=== PATIENT | male | born 1940 | race Caucasian/White ===

== ENCOUNTER 2016-04-25 14:12 | Outpatient (CLI) | payer MEDICARE, OTHER | END 2016-04-25 14:13 | disposition home or self-care (01) | DX: I48.0 Paroxysmal atrial fibrillation (principal) ==

== ENCOUNTER 2016-05-01 10:05 | Outpatient (CLI) | payer MEDICARE, OTHER | END 2016-05-01 10:06 | disposition home or self-care (01) | DX: I48.0 Paroxysmal atrial fibrillation (principal) ==

== ENCOUNTER 2016-05-17 13:40 | Outpatient (CLI) | payer MEDICARE, OTHER | END 2016-05-17 13:41 | disposition home or self-care (01) | DX: I48.0 Paroxysmal atrial fibrillation (principal) ==

== ENCOUNTER 2016-05-20 14:23 | Outpatient (CLI) | payer MEDICARE, OTHER | END 2016-05-20 14:24 | disposition home or self-care (01) | DX: I48.0 Paroxysmal atrial fibrillation (principal) ==

== ENCOUNTER 2016-05-27 06:57 | Outpatient (CLI) | payer MEDICARE, OTHER | END 2016-05-27 06:58 | disposition home or self-care (01) | DX: I48.0 Paroxysmal atrial fibrillation (principal) ==

== ENCOUNTER 2016-06-05 10:17 | Outpatient (CLI) | payer MEDICARE, OTHER | END 2016-06-05 10:18 | disposition home or self-care (01) | DX: I48.0 Paroxysmal atrial fibrillation (principal) ==

== ENCOUNTER 2016-06-11 13:01 | Outpatient (CLI) | payer MEDICARE, OTHER | END 2016-06-11 13:02 | disposition home or self-care (01) | DX: I48.0 Paroxysmal atrial fibrillation (principal) ==

== ENCOUNTER 2016-06-14 07:20 | Outpatient (CLI) | payer MEDICARE, OTHER | END 2016-06-14 07:21 | disposition home or self-care (01) | DX: I48.0 Paroxysmal atrial fibrillation (principal) ==

== ENCOUNTER 2016-06-17 12:47 | Outpatient (CLI) | payer MEDICARE, OTHER | END 2016-06-17 12:48 | disposition home or self-care (01) | DX: I48.0 Paroxysmal atrial fibrillation (principal) ==

== ENCOUNTER 2016-06-27 12:30 | Outpatient (CLI) | payer MEDICARE, OTHER | END 2016-06-27 12:31 | disposition home or self-care (01) | DX: I48.0 Paroxysmal atrial fibrillation (principal) ==

== ENCOUNTER 2016-07-04 12:53 | Outpatient (CLI) | payer MEDICARE, OTHER | END 2016-07-04 12:54 | disposition home or self-care (01) | DX: I48.0 Paroxysmal atrial fibrillation (principal) ==

== ENCOUNTER 2016-07-11 11:21 | Outpatient (CLI) | payer MEDICARE, OTHER | END 2016-07-11 11:22 | disposition home or self-care (01) | DX: I48.0 Paroxysmal atrial fibrillation (principal) ==

== ENCOUNTER 2016-07-22 13:29 | Outpatient (CLI) | payer MEDICARE, OTHER | END 2016-07-22 13:30 | disposition home or self-care (01) | DX: I48.0 Paroxysmal atrial fibrillation (principal) ==

== ENCOUNTER 2016-07-29 13:31 | Outpatient (CLI) | payer MEDICARE, OTHER | END 2016-07-29 13:32 | disposition home or self-care (01) | DX: I48.0 Paroxysmal atrial fibrillation (principal) ==

== ENCOUNTER 2016-08-12 11:02 | Outpatient (CLI) | payer MEDICARE, OTHER | END 2016-08-12 11:03 | disposition home or self-care (01) | DX: I48.0 Paroxysmal atrial fibrillation (principal) ==

== ENCOUNTER 2016-08-19 11:11 | Outpatient (CLI) | payer MEDICARE, OTHER | END 2016-08-19 11:12 | disposition home or self-care (01) | DX: I48.0 Paroxysmal atrial fibrillation (principal) ==

== ENCOUNTER 2016-08-26 09:13 | Outpatient (CLI) | payer MEDICARE, OTHER | END 2016-08-26 09:14 | disposition home or self-care (01) | DX: I48.0 Paroxysmal atrial fibrillation (principal) ==

== ENCOUNTER 2016-09-02 10:18 | Outpatient (CLI) | payer MEDICARE, OTHER | END 2016-09-02 10:19 | disposition home or self-care (01) | DX: I48.0 Paroxysmal atrial fibrillation (principal) ==

== ENCOUNTER 2016-09-09 13:11 | Outpatient (CLI) | payer MEDICARE, OTHER | END 2016-09-09 13:12 | disposition home or self-care (01) | DX: I48.0 Paroxysmal atrial fibrillation (principal) ==

== ENCOUNTER 2016-09-18 09:47 | Outpatient (CLI) | payer MEDICARE, OTHER | END 2016-09-18 09:48 | disposition home or self-care (01) | LOC: LAB.F 09:47 | PROVIDERS: ATTEND Internal Medicine | DX: I48.0 Paroxysmal atrial fibrillation (principal) | CPT/HCPCS: 85610 ==

== ENCOUNTER 2016-09-24 10:28 | Outpatient (CLI) | payer MEDICARE, OTHER | END 2016-09-24 10:29 | disposition home or self-care (01) | LOC: LAB.F 10:28 | PROVIDERS: ATTEND Internal Medicine | DX: I48.0 Paroxysmal atrial fibrillation (principal) | CPT/HCPCS: 85610 ==

== ENCOUNTER 2016-09-30 14:00 | Outpatient (CLI) | payer MEDICARE, OTHER | END 2016-09-30 14:01 | disposition home or self-care (01) | LOC: LAB.F 14:00 | PROVIDERS: ATTEND Internal Medicine | DX: I48.0 Paroxysmal atrial fibrillation (principal) | CPT/HCPCS: 85610 ==

== ENCOUNTER 2016-10-08 09:12 | Outpatient (CLI) | payer MEDICARE, OTHER | END 2016-10-08 09:13 | disposition home or self-care (01) | LOC: LAB.F 09:12 | PROVIDERS: ATTEND Internal Medicine | DX: I48.0 Paroxysmal atrial fibrillation (principal) | CPT/HCPCS: 85610 ==

== ENCOUNTER 2016-10-15 09:08 | Outpatient (CLI) | payer MEDICARE, OTHER | END 2016-10-15 09:09 | disposition home or self-care (01) | LOC: LAB.F 09:08 | PROVIDERS: ATTEND Internal Medicine | DX: I48.0 Paroxysmal atrial fibrillation (principal) | CPT/HCPCS: 85610 ==

== ENCOUNTER 2016-10-21 08:00 | Outpatient (CLI) | payer MEDICARE, OTHER | END 2016-10-21 08:01 | disposition home or self-care (01) | LOC: LAB.F 08:00 | PROVIDERS: ATTEND Internal Medicine | DX: I48.0 Paroxysmal atrial fibrillation (principal) | CPT/HCPCS: 85610 ==

== ENCOUNTER 2016-10-28 11:01 | Outpatient (CLI) | payer MEDICARE, OTHER | END 2016-10-28 11:02 | disposition home or self-care (01) | LOC: LAB.F 11:01 | PROVIDERS: ATTEND Internal Medicine | DX: I48.0 Paroxysmal atrial fibrillation (principal) | CPT/HCPCS: 85610 ==

== ENCOUNTER 2016-11-04 10:02 | Outpatient (CLI) | payer MEDICARE, OTHER | END 2016-11-04 10:03 | disposition home or self-care (01) | LOC: LAB.F 10:02 | PROVIDERS: ATTEND Internal Medicine | DX: I48.0 Paroxysmal atrial fibrillation (principal) | CPT/HCPCS: 85610 ==

== ENCOUNTER 2016-11-11 10:54 | Outpatient (CLI) | payer MEDICARE, OTHER | END 2016-11-11 10:55 | disposition home or self-care (01) | LOC: LAB.F 10:54 | PROVIDERS: ATTEND Internal Medicine | DX: I48.0 Paroxysmal atrial fibrillation (principal) | CPT/HCPCS: 85610 ==

== ENCOUNTER 2016-11-18 10:37 | Outpatient (CLI) | payer MEDICARE, OTHER | END 2016-11-18 10:38 | LOC: LAB.F 10:37 | PROVIDERS: ATTEND Internal Medicine | DX: I48.0 Paroxysmal atrial fibrillation (principal) | CPT/HCPCS: 85610 ==

== ENCOUNTER 2016-12-02 10:17 | Outpatient (CLI) | payer MEDICARE, OTHER | END 2016-12-02 10:18 | disposition home or self-care (01) | LOC: LAB.F 10:17 | PROVIDERS: ATTEND Internal Medicine | DX: I48.0 Paroxysmal atrial fibrillation (principal) | CPT/HCPCS: 85610 ==

== ENCOUNTER 2016-12-06 14:59 | Outpatient (CLI) | payer MEDICARE, OTHER | END 2016-12-06 15:00 | disposition critical access hospital (66) | LOC: EMS 14:59 | PROVIDERS: ATTEND Surgery | DX: R55 Syncope and collapse (principal) | CPT/HCPCS: A0425; A0427 ==

== ENCOUNTER 2016-12-06 15:24 | Emergency (ER) | payer MEDICARE, OTHER ==
[2016-12-06] MEDS ORDERED: SODIUM CHLORIDE 0.9% 1,000 ML IV ONE (15:52)
--- NOTE | 2016-12-06 15:55 | ED Physician Documentation ---
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 - Additional information Additional information: The patient is a 76-year-old male who arrives via ambulance after syncopal episodes 2 at the athletic [employer] just prior to arrival. He had been riding the stationary bicycle when he passed out briefly. He denies any injury, and denies any preceding symptoms except for mild headache. When medics evaluated him, he initially refused transport to the hospital, but then had another syncopal episode when the medics were performing orthostatic vital signs. He denies any chest discomfort, palpitations, shortness of breath, nausea, or vomiting. He admits to having a tendency to not drink enough fluids prior to working out at the gym. He did take 2 Tylenol before going to the gym today because of mild headache. Review of his medical record reveals overnight hospitalization here in January 2016 after similar presentation. His syncope at that time was attributed to dysrhythmia. He has since undergone ablation therapy 2 months ago. Review of Systems Constitutional: denies: Fever, Fatigue Eyes: denies: Decreased vision Ears: denies: Tinnitus/ringing Nose: denies: Congestion Throat: denies: Sore throat Cardiac: denies: Chest pain / pressure, Palpitations Respiratory: denies: Dyspnea, Cough GI: denies: Abdominal Pain, Nausea, Vomiting : denies: Dysuria, Incontinent Skin: denies: Rash Musculoskeletal: denies: Neck pain, Back pain, Extremity swelling Neurologic: reports: Syncope, Headache (Mild, generalized.). denies: Focal weakness, Numbness, Seizure, Head injury PD PAST MEDICAL HISTORY - Past Medical History Cardiovascular: Deep vein thrombosis, Pulmonary embolism Endocrine/Autoimmune: Type 2 diabetes GI: GERD, Ulcers, Hiatal hernia : None Psych: None Musculoskeletal: Gout - Past Surgical History Past Surgical History: Yes General: Hiatal hernia repair Ortho: Knee replacement, Arthroscopic surgery, Other Derm: Other - Present Medications Home Medications: Ambulatory Orders Medication Instructions Recorded Confirmed Cholecalciferol (Vitamin D3) 400 unit PO DAILY 08/26/13 12/06/16 [Vitamin D3] Cyanocobalamin/Folic Acid [Vitamin 1 tab PO DAILY 08/26/13 12/06/16 V54-[id number] Acid Tablet] Gabapentin [Neurontin] 300 mg PO BID 08/26/13 12/06/16 Acetaminophen [Tylenol] 650 mg PO Q4HR PRN #0 tablet 01/25/16 12/06/16 Atorvastatin [Lipitor] 40 mg PO QPM tablet 01/25/16 12/06/16 Metoprolol Tartrate [Lopressor] 12.5 mg PO BID #60 tablet 01/25/16 12/06/16 Warfarin [Coumadin] 7.5 mg PO QPM tablet 01/25/16 12/06/16 metFORMIN [Glucophage] 500 mg PO BIDWM 12/06/16 12/06/16 raNITIdine [Zantac] 150 mg PO DAILY 12/06/16 12/06/16 - Allergies Allergies/Adverse Reactions: Allergies Allergy/AdvReac Type Severity Reaction Status Date / Time neosporin ointment AdvReac Intermediate Rash Uncoded 01/24/16 12:15 - Social History Does the pt smoke?: No Smoking Status: Former smoker Does the pt drink ETOH?: Yes Does the pt have substance abuse?: No - Immunizations Immunizations are current?: Yes - POLST Patient has POLST: No PD ED PE NORMAL - Vitals Vital signs reviewed: Yes (Normal) - General General: Alert and oriented X 3, Well developed/nourished - HEENT HEENT: Atraumatic, PERRL, EOMI, Pharynx benign - Neck Neck: Supple, no meningeal sign, No adenopathy, No JVD - Cardiac Cardiac: RRR, No murmur - Respiratory Respiratory: No respiratory distress, Clear bilaterally - Abdomen Abdomen: Soft, Non tender, No organomegaly - Back Back: No CVA TTP - Derm Derm: No rash - Extremities Extremities: No edema, No calf tenderness / cord - Neuro Neuro: Alert and oriented X 3, No motor deficit, No sensory deficit, Normal speech Results - Vitals Vitals: Vital Signs - 24 hr 12/06/16 12/06/16 12/06/16 15:28 16:14 17:59 Temperature 35.6 C L Heart Rate 69 58 L Heart Rate [ 62 Sitting] Heart Rate [ 67 Standing] Heart Rate [ 58 L Supine] Respiratory 16 14 Rate Blood Pressure 115/75 123/81 H Blood Pressure 118/75 [Sitting] Blood Pressure 114/74 [Standing] Blood Pressure 118/72 [Supine] O2 Saturation 96 Oxygen O2 Source Room air - EKG (time done) 16:09 Rate: Rate (enter#) (58) Rhythm: NSR [place]: Normal Intervals: Prolonged AR Ischemia: Normal ST segments Compare to prior EKG: Unchanged from prior EKG Computer interpretation: Agree with computer - Labs Labs: Laboratory Tests 12/06/16 12/06/16 12/06/16 16:21 16:21 16:21 WBC 14.8 H RBC 4.34 L Hgb 13.4 L Hct 39.5 L MCV 91.1 MCH 30.9 MCHC 33.9 RDW 13.8 Plt Count 337 MPV 8.1 Neut # 12.4 H Lymph # 1.2 L [place] # 1.0 Eos # 0.0 Baso # 0.0 Absolute Nucleated RBC 0.01 Nucleated RBCs 0.0 PT 34.6 H INR 3.0 H Sodium 137 Potassium 4.8 Chloride 105 Carbon Dioxide 26 Anion Gap 6.0 BUN 20 Creatinine 1.0 Estimated GFR (MDRD) 73 L Glucose 149 H Calcium 9.0 Total Bilirubin 0.9 AST 37 ALT 37 Alkaline Phosphatase 60 Troponin I Total Protein 6.2 L Albumin 3.8 Globulin 2.4 Albumin/Globulin Ratio 1.6 Lipase 20 L Urine Color Urine Clarity Urine pH Ur Specific [place] Urine Protein Urine Glucose (UA) Urine Ketones Urine Occult Blood Urine Nitrite Urine Bilirubin Urine Urobilinogen Ur Leukocyte Esterase Ur Microscopic Review Urine Culture Comments 12/06/16 12/06/16 16:21 17:25 WBC RBC Hgb Hct MCV MCH MCHC RDW Plt Count MPV Neut # Lymph # [place] # Eos # Baso # Absolute Nucleated RBC Nucleated RBCs PT INR Sodium Potassium Chloride Carbon Dioxide Anion Gap BUN Creatinine Estimated GFR (MDRD) Glucose Calcium Total Bilirubin AST ALT Alkaline Phosphatase Troponin I < 0.04 Total Protein Albumin Globulin Albumin/Globulin Ratio Lipase Urine Color YELLOW Urine Clarity CLEAR Urine pH 6.0 Ur Specific [place] 1.020 Urine Protein NEGATIVE Urine Glucose (UA) NEGATIVE Urine Ketones NEGATIVE Urine Occult Blood NEGATIVE Urine Nitrite NEGATIVE Urine Bilirubin NEGATIVE Urine Urobilinogen 0.2 (NORMAL) Ur Leukocyte Esterase NEGATIVE Ur Microscopic Review NOT INDICATED Urine Culture Comments NOT INDICATED - Rads (name of study) Head CT Radiology: Prelim report reviewed, EMP read contemporaneously, See rad report ( No CT evidence of acute intracranial abnormality.) PD MEDICAL DECISION MAKING - ED course Complexity details: reviewed old records, reviewed results, re-evaluated patient , considered differential, d/w patient ED course: The patient's presentation is significant for syncope, associated with orthostatic hypotension on initial evaluation by the paramedics. Dehydration is the most likely cause for his symptoms. He admits to inadequate oral intake of fluids, and had been working out to the point of sweating while in the gym. No dysrhythmia has been detected on cardiac monitoring throughout his time in the emergency department, nor in the prehospital setting. Because he has mild headache preceded his symptoms, a head CT was performed. It reveals no acute intracranial abnormality. Treatment in the emergency department included administration of normal saline 1 L IV. Subsequently orthostatic vital signs are normal, and he demonstrates the ability to ambulate in the hallway without recurrent symptoms. I discussed with him the results of his workup, the importance of outpatient follow-up, as well as potentially worrisome signs or symptoms that should prompt reevaluation in the emergency department. Departure - Departure Disposition: 01 Home, Self Care Clinical Impression: Dehydration Syncope Qualifiers: Syncope type: unspecified Qualified Code(s): R55 - Syncope and collapse Condition: Stable Instructions: ED Dehydration, ED Fainting Unkn Cause Follow-Up: Conor Braswell MD [Primary Care Provider] - Comments: Drink plenty of fluids, particularly when exercising. Continue your medications as previously prescribed. Follow-up with your primary physician. Call to schedule an appointment. Return to the emergency department if you develop recurrent lightheadedness or fainting spells, chest pain, shortness of breath, or otherwise worsening symptoms. Discharge Date/Time: 12/06/16 18:19
[2016-12-06 16:43] LABS: BASOPHILS % (AUTO) 0.3 %; EOSINOPHILS % (AUTO) 0.3 %; HCT - HEMATOCRIT 39.5 % (42.0-52.0); HGB - HEMOGLOBIN 13.4 g/dL (14.0-18.0); LYMPHOCYTES # (AUTO) 1.2 10^3/uL (1.5-3.5); LYMPHOCYTES % (AUTO) 8.5 %; MEAN CORPUSCULAR HEMOGLOBIN 30.9 pg (27.0-31.0); MEAN CORPUSCULAR HGB CONC 33.9 g/dL (32.0-36.0); MEAN CORPUSCULAR VOLUME 91.1 fL (80.0-94.0); MEAN PLATELET VOLUME 8.1 fL (7.4-11.4); NEUTROPHILS # (AUTO) 12.4 10^3/uL (1.5-6.6); NEUTROPHILS % (AUTO) 83.9 %; RED BLOOD COUNT 4.34 10^6/uL (4.70-6.10); RED CELL DISTRIBUTION WIDTH 13.8 % (12.0-15.0); UNCORRECTED WHITE BLOOD COUNT 14.8 x10^3/uL; WHITE BLOOD COUNT 14.8 x10^3/uL (4.8-10.8)
[2016-12-06 16:52] LABS: PT - PROTHROMBIN TIME 34.6 secs (9.9-12.6)
[2016-12-06 16:54] LABS: ALBUMIN/GLOBULIN RATIO 1.6 (1.0-2.2); BILIRUBIN,TOTAL 0.9 mg/dL (0.2-1.0); POTASSIUM 4.8 mmol/L (3.5-5.0); TOTAL PROTEIN 6.2 g/dL (6.7-8.2)
--- NOTE | 2016-12-06 17:12 | CT Preliminary Report ---
Exam: CT Head W/O IMPRESSION: No CT evidence of acute intracranial abnormality, specifically no CT evidence of acute infarct, intra cranial hemorrhage, mass effect, midline shift, or hydrocephalus. [facility] SITE ID: [id number]
--- NOTE | 2016-12-06 17:15 | CT Report ---
EXAM: CT HEAD EXAM DATE: 12/06/2016 04:57 PM. CLINICAL HISTORY: Headache with syncopal episode; on warfarin. COMPARISON: None. TECHNIQUE: Multiaxial CT images were obtained from the foramen magnum to the vertex. IV contrast: Non e. Reformats: Coronal. In accordance with CT protocol optimization, one or more of the following dose reduction techniques w ere utilized for this exam: automated exposure control, adjustment of mA and/or KV based on patient s ize, or use of iterative reconstructive technique. FINDINGS: Parenchyma: No intraparenchymal hemorrhage. No evidence of mass, midline shift, or CT findings of inf arction. Sood-white differentiation is distinct. Extraaxial Spaces: Normal for age. No subdural or epidural collections identified. Ventricles: Normal in size and position. Sinuses: Imaged paranasal sinuses, orbits, and mastoids show no significant abnormality. Bones: No evidence of fracture or calvarial defect. Other: None. IMPRESSION: No CT evidence of acute intracranial abnormality, specifically no CT evidence of acute infarct, intra cranial hemorrhage, mass effect, midline shift, or hydrocephalus. [facility] Referring Provider Line: [phone] SITE ID: [id number]
[2016-12-06 17:41] LABS: BILIRUBIN,URINE NEGATIVE (NEGATIVE)
[2016-12-06 17:42] LABS: UA CHARGE (STRIP ONLY) YES; UR CULTURE IF IND NOT INDICATED
[2016-12-06 18:00] VITALS: BP 123/81
== END 2016-12-06 18:19 | disposition home or self-care (01) ==
LOC: EDUNIT# → SUPCPDRO 15:24 → ED 15:24
DX: E86.0 Dehydration (principal); R55 Syncope and collapse; E11.9 Type 2 diabetes mellitus without complications; Z79.84 Long term (current) use of oral hypoglycemic drugs; Z86.711 Personal history of pulmonary embolism; Z86.718 Personal history of other venous thrombosis and embolism; Z79.01 Long term (current) use of anticoagulants; K21.9 Gastro-esophageal reflux disease without esophagitis; Z87.11 Personal history of peptic ulcer disease; Z87.891 Personal history of nicotine dependence
CPT/HCPCS: 36415; 70450; 80053; 81001; 81003; 83690; 84484; 85025; 85610; 87086; 93005; 99284

== ENCOUNTER 2016-12-16 08:00 | Outpatient (CLI) | payer MEDICARE, OTHER | END 2016-12-16 08:01 | disposition home or self-care (01) | LOC: LAB.F 08:00 | PROVIDERS: ATTEND Internal Medicine | DX: I48.0 Paroxysmal atrial fibrillation (principal) | CPT/HCPCS: 85610 ==

== ENCOUNTER 2016-12-24 12:33 | Outpatient (CLI) | payer MEDICARE, OTHER | END 2016-12-24 12:34 | disposition home or self-care (01) | LOC: LAB.F 12:33 | PROVIDERS: ATTEND Internal Medicine | DX: I48.0 Paroxysmal atrial fibrillation (principal) | CPT/HCPCS: 85610 ==

== ENCOUNTER 2017-01-06 08:10 | Outpatient (CLI) | payer MEDICARE, OTHER | END 2017-01-06 08:11 | disposition home or self-care (01) | LOC: LAB.F 08:10 | PROVIDERS: ATTEND Internal Medicine | DX: I48.0 Paroxysmal atrial fibrillation (principal) | CPT/HCPCS: 85610 ==

== ENCOUNTER 2017-01-13 10:47 | Outpatient (CLI) | payer MEDICARE, OTHER | END 2017-01-13 10:48 | disposition home or self-care (01) | LOC: LAB.F 10:47 | PROVIDERS: ATTEND Internal Medicine | DX: I48.0 Paroxysmal atrial fibrillation (principal) | CPT/HCPCS: 85610 ==

== ENCOUNTER 2017-01-27 09:01 | Outpatient (CLI) | payer MEDICARE, OTHER | END 2017-01-27 09:02 | disposition home or self-care (01) | LOC: LAB.F 09:01 | PROVIDERS: ATTEND Internal Medicine | DX: I48.0 Paroxysmal atrial fibrillation (principal) | CPT/HCPCS: 85610 ==

== ENCOUNTER 2017-02-17 12:42 | Outpatient (CLI) | payer MEDICARE, OTHER | END 2017-02-17 12:43 | disposition home or self-care (01) | LOC: LAB.F 12:42 | PROVIDERS: ATTEND Internal Medicine | DX: I48.0 Paroxysmal atrial fibrillation (principal) | CPT/HCPCS: 85610 ==

== ENCOUNTER 2017-03-11 10:47 | Outpatient (CLI) | payer MEDICARE, OTHER | END 2017-03-11 10:48 | disposition home or self-care (01) | LOC: LAB.F 10:47 | PROVIDERS: ATTEND Internal Medicine | DX: I48.0 Paroxysmal atrial fibrillation (principal) | CPT/HCPCS: 85610 ==

== ENCOUNTER 2017-03-19 09:48 | Outpatient (CLI) | payer MEDICARE, OTHER | END 2017-03-19 09:49 | disposition home or self-care (01) | LOC: LAB.F 09:48 | PROVIDERS: ATTEND Internal Medicine | DX: I48.0 Paroxysmal atrial fibrillation (principal) | CPT/HCPCS: 85610 ==

== ENCOUNTER 2017-04-02 09:50 | Outpatient (CLI) | payer MEDICARE, OTHER | END 2017-04-02 09:51 | disposition home or self-care (01) | LOC: LAB.F 09:50 | PROVIDERS: ATTEND Internal Medicine | DX: I48.0 Paroxysmal atrial fibrillation (principal) | CPT/HCPCS: 85610 ==

== ENCOUNTER 2017-04-23 10:16 | Outpatient (CLI) | payer MEDICARE, OTHER | END 2017-04-23 10:17 | disposition home or self-care (01) | LOC: LAB.F 10:16 | PROVIDERS: ATTEND Internal Medicine | DX: I48.0 Paroxysmal atrial fibrillation (principal) | CPT/HCPCS: 85610 ==

== ENCOUNTER 2017-05-13 14:12 | Outpatient (CLI) | payer MEDICARE, OTHER | END 2017-05-13 14:13 | disposition home or self-care (01) | LOC: LAB.F 14:12 | PROVIDERS: ATTEND Internal Medicine | DX: I48.0 Paroxysmal atrial fibrillation (principal) | CPT/HCPCS: 85610 ==

== ENCOUNTER 2017-06-04 09:45 | Outpatient (CLI) | payer MEDICARE, OTHER | END 2017-06-04 09:46 | disposition home or self-care (01) | LOC: LAB.F 09:45 | PROVIDERS: ATTEND Internal Medicine | DX: I48.0 Paroxysmal atrial fibrillation (principal) | CPT/HCPCS: 85610 ==

== ENCOUNTER 2017-06-11 09:21 | Outpatient (CLI) | payer MEDICARE, OTHER | END 2017-06-11 09:22 | disposition home or self-care (01) | LOC: LAB.F 09:21 | PROVIDERS: ATTEND Internal Medicine | DX: I48.0 Paroxysmal atrial fibrillation (principal) | CPT/HCPCS: 85610 ==

== ENCOUNTER 2017-06-16 10:57 | Outpatient (CLI) | payer MEDICARE, OTHER | END 2017-06-16 10:58 | disposition home or self-care (01) | LOC: LAB.F 10:57 | PROVIDERS: ATTEND Internal Medicine | DX: I48.0 Paroxysmal atrial fibrillation (principal) | CPT/HCPCS: 85610 ==

== ENCOUNTER 2017-06-23 14:30 | Outpatient (CLI) | payer MEDICARE, OTHER | END 2017-06-23 14:31 | disposition home or self-care (01) | LOC: LAB.F 14:30 | PROVIDERS: ATTEND Internal Medicine | DX: I48.0 Paroxysmal atrial fibrillation (principal) | CPT/HCPCS: 85610 ==

== ENCOUNTER 2017-06-30 13:12 | Outpatient (CLI) | payer MEDICARE, OTHER | END 2017-06-30 13:13 | disposition home or self-care (01) | LOC: LAB.F 13:12 | PROVIDERS: ATTEND Internal Medicine | DX: I48.0 Paroxysmal atrial fibrillation (principal) | CPT/HCPCS: 85610 ==

== ENCOUNTER 2017-07-08 14:09 | Outpatient (CLI) | payer MEDICARE, OTHER | END 2017-07-08 14:10 | disposition home or self-care (01) | LOC: LAB.F 14:09 | PROVIDERS: ATTEND Internal Medicine | DX: I48.0 Paroxysmal atrial fibrillation (principal) | CPT/HCPCS: 85610 ==

== ENCOUNTER 2017-07-28 11:29 | Outpatient (CLI) | payer MEDICARE, OTHER ==
[2017-07-28 18:44] LABS: CREATININE 0.8 mg/dL (0.6-1.2)
== END 2017-07-28 11:30 | disposition home or self-care (01) ==
LOC: LAB.F 11:29
PROVIDERS: ATTEND Internal Medicine
DX: I48.0 Paroxysmal atrial fibrillation (principal); E11.42 Type 2 diabetes mellitus with diabetic polyneuropathy
CPT/HCPCS: 36415; 82565; 85610

== ENCOUNTER 2017-08-04 13:19 | Outpatient (CLI) | payer MEDICARE, OTHER | END 2017-08-04 13:20 | disposition home or self-care (01) | LOC: LAB.F 13:19 | PROVIDERS: ATTEND Internal Medicine | DX: I48.0 Paroxysmal atrial fibrillation (principal) | CPT/HCPCS: 85610 ==

== ENCOUNTER 2017-08-13 09:39 | Outpatient (CLI) | payer MEDICARE, OTHER | END 2017-08-13 09:40 | disposition home or self-care (01) | LOC: LAB.F 09:39 | PROVIDERS: ATTEND Internal Medicine | DX: I48.0 Paroxysmal atrial fibrillation (principal) | CPT/HCPCS: 85610 ==

== ENCOUNTER 2017-08-18 13:36 | Outpatient (CLI) | payer MEDICARE, OTHER | END 2017-08-18 13:37 | disposition home or self-care (01) | LOC: LAB.F 13:36 | PROVIDERS: ATTEND Internal Medicine | DX: I48.0 Paroxysmal atrial fibrillation (principal) | CPT/HCPCS: 85610 ==

== ENCOUNTER 2017-08-25 11:08 | Outpatient (CLI) | payer MEDICARE, OTHER | END 2017-08-25 11:09 | disposition home or self-care (01) | LOC: LAB.F 11:08 | PROVIDERS: ATTEND Internal Medicine | DX: I48.0 Paroxysmal atrial fibrillation (principal) | CPT/HCPCS: 85610 ==

== ENCOUNTER 2017-09-01 11:17 | Outpatient (CLI) | payer MEDICARE, OTHER | END 2017-09-01 11:18 | disposition home or self-care (01) | LOC: LAB.F 11:17 | PROVIDERS: ATTEND Internal Medicine | DX: I48.0 Paroxysmal atrial fibrillation (principal) | CPT/HCPCS: 85610 ==

== ENCOUNTER 2017-09-08 11:29 | Outpatient (CLI) | payer MEDICARE, OTHER | END 2017-09-08 11:30 | disposition home or self-care (01) | LOC: LAB.F 11:29 | PROVIDERS: ATTEND Internal Medicine | DX: I48.0 Paroxysmal atrial fibrillation (principal) | CPT/HCPCS: 85610 ==

== ENCOUNTER 2017-09-16 10:41 | Outpatient (CLI) | payer MEDICARE, OTHER | END 2017-09-16 10:42 | disposition home or self-care (01) | LOC: LAB.F 10:41 | PROVIDERS: ATTEND Internal Medicine | DX: I48.0 Paroxysmal atrial fibrillation (principal) | CPT/HCPCS: 85610 ==

== ENCOUNTER 2017-09-22 13:12 | Outpatient (CLI) | payer MEDICARE, OTHER | END 2017-09-22 13:13 | disposition home or self-care (01) | LOC: LAB.F 13:12 | PROVIDERS: ATTEND Internal Medicine | DX: I48.0 Paroxysmal atrial fibrillation (principal) | CPT/HCPCS: 85610 ==

== ENCOUNTER 2017-09-29 14:15 | Outpatient (CLI) | payer MEDICARE, OTHER ==
[2017-09-29 18:21] LABS: BASOPHILS % (AUTO) 0.5 %; EOSINOPHILS # (AUTO) 0.2 10^3/uL (0.0-0.7); EOSINOPHILS % (AUTO) 2.6 %; HGB - HEMOGLOBIN 13.5 g/dL (14.0-18.0); LYMPHOCYTES % (AUTO) 29.5 %; MEAN CORPUSCULAR HEMOGLOBIN 29.9 pg (27.0-31.0); MEAN CORPUSCULAR HGB CONC 32.3 g/dL (32.0-36.0); MEAN CORPUSCULAR VOLUME 92.5 fL (80.0-94.0); MEAN PLATELET VOLUME 8.2 fL (7.4-11.4); MONOCYTES # (AUTO) 0.6 10^3/uL (0.0-1.0); MONOCYTES % (AUTO) 8.1 %; NEUTROPHILS # (AUTO) 4.1 10^3/uL (1.5-6.6); NEUTROPHILS % (AUTO) 59.3 %; PLT - PLATELET COUNT 366 10^3/uL (130-450); RED BLOOD COUNT 4.53 10^6/uL (4.70-6.10); RED CELL DISTRIBUTION WIDTH 14.6 % (12.0-15.0); WHITE BLOOD COUNT 6.9 x10^3/uL (4.8-10.8)
[2017-09-29 18:49] LABS: CALCIUM 9.4 mg/dL (8.5-10.3)
== END 2017-09-29 14:16 | disposition home or self-care (01) ==
LOC: LAB.F 14:15
PROVIDERS: ATTEND Internal Medicine
DX: Z01.812 Encounter for preprocedural laboratory examination (principal); I48.0 Paroxysmal atrial fibrillation
CPT/HCPCS: 36415; 80048; 85025; 85610

== ENCOUNTER 2017-10-06 09:43 | Outpatient (CLI) | payer MEDICARE, OTHER | END 2017-10-06 09:44 | disposition home or self-care (01) | LOC: LAB.F 09:43 | PROVIDERS: ATTEND Internal Medicine | DX: I48.0 Paroxysmal atrial fibrillation (principal) | CPT/HCPCS: 85610 ==

== ENCOUNTER 2017-10-15 10:12 | Outpatient (CLI) | payer MEDICARE, OTHER | END 2017-10-15 10:13 | disposition home or self-care (01) | LOC: LAB.F 10:12 | PROVIDERS: ATTEND Internal Medicine | DX: I48.0 Paroxysmal atrial fibrillation (principal) | CPT/HCPCS: 85610 ==

== ENCOUNTER 2017-10-20 13:15 | Outpatient (CLI) | payer MEDICARE, OTHER | END 2017-10-20 13:16 | disposition home or self-care (01) | LOC: LAB.F 13:15 | PROVIDERS: ATTEND Internal Medicine | DX: I48.0 Paroxysmal atrial fibrillation (principal) | CPT/HCPCS: 85610 ==

== ENCOUNTER 2017-10-27 11:20 | Outpatient (CLI) | payer MEDICARE, OTHER | END 2017-10-27 11:21 | disposition home or self-care (01) | LOC: LAB.F 11:20 | PROVIDERS: ATTEND Internal Medicine | DX: I48.0 Paroxysmal atrial fibrillation (principal) | CPT/HCPCS: 85610 ==

== ENCOUNTER 2017-11-10 13:28 | Outpatient (CLI) | payer MEDICARE, OTHER | END 2017-11-10 13:29 | disposition home or self-care (01) | LOC: LAB.F 13:28 | PROVIDERS: ATTEND Internal Medicine | DX: I48.0 Paroxysmal atrial fibrillation (principal) | CPT/HCPCS: 85610 ==

== ENCOUNTER 2017-11-25 11:15 | Outpatient (CLI) | payer MEDICARE, OTHER | END 2017-11-25 11:16 | disposition home or self-care (01) | LOC: LAB.F 11:15 | PROVIDERS: ATTEND Internal Medicine | DX: I48.0 Paroxysmal atrial fibrillation (principal) | CPT/HCPCS: 85610 ==

== ENCOUNTER 2017-12-12 09:23 | Outpatient (CLI) | payer MEDICARE, OTHER | END 2017-12-12 09:24 | disposition home or self-care (01) | LOC: LAB.F 09:23 | PROVIDERS: ATTEND Internal Medicine | DX: I48.0 Paroxysmal atrial fibrillation (principal) | CPT/HCPCS: 85610 ==

== ENCOUNTER 2017-12-15 13:07 | Outpatient (CLI) | payer MEDICARE, OTHER | END 2017-12-15 13:08 | disposition home or self-care (01) | LOC: LAB.F 13:07 | PROVIDERS: ATTEND Internal Medicine | DX: I48.0 Paroxysmal atrial fibrillation (principal) | CPT/HCPCS: 85610 ==

== ENCOUNTER 2017-12-19 11:32 | Outpatient (CLI) | payer MEDICARE, OTHER | END 2017-12-19 11:33 | disposition home or self-care (01) | LOC: LAB.F 11:32 | PROVIDERS: ATTEND Internal Medicine | DX: I48.0 Paroxysmal atrial fibrillation (principal) | CPT/HCPCS: 85610 ==

== ENCOUNTER 2018-01-05 14:14 | Outpatient (CLI) | payer MEDICARE, OTHER | END 2018-01-05 14:15 | disposition home or self-care (01) | LOC: LAB.S 14:14 | PROVIDERS: ATTEND Internal Medicine | DX: I48.0 Paroxysmal atrial fibrillation (principal) | CPT/HCPCS: 85610 ==

== ENCOUNTER 2018-01-12 08:00 | Outpatient (CLI) | payer MEDICARE, OTHER | END 2018-01-12 08:01 | disposition home or self-care (01) | LOC: LAB.F 08:00 | PROVIDERS: ATTEND Internal Medicine | DX: I48.0 Paroxysmal atrial fibrillation (principal) | CPT/HCPCS: 85610 ==

== ENCOUNTER 2018-01-19 13:08 | Outpatient (CLI) | payer MEDICARE, OTHER | END 2018-01-19 13:09 | disposition home or self-care (01) | LOC: LAB.F 13:08 | PROVIDERS: ATTEND Internal Medicine | DX: I48.0 Paroxysmal atrial fibrillation (principal) | CPT/HCPCS: 85610 ==

== ENCOUNTER 2018-02-02 13:59 | Outpatient (CLI) | payer MEDICARE, OTHER | END 2018-02-02 14:00 | disposition home or self-care (01) | LOC: LAB.F 13:59 | PROVIDERS: ATTEND Internal Medicine | DX: I48.0 Paroxysmal atrial fibrillation (principal) | CPT/HCPCS: 85610 ==

== ENCOUNTER 2018-02-16 14:30 | Outpatient (CLI) | payer MEDICARE, OTHER | END 2018-02-16 14:31 | disposition home or self-care (01) | LOC: LAB.F 14:30 | PROVIDERS: ATTEND Internal Medicine | DX: I48.0 Paroxysmal atrial fibrillation (principal) | CPT/HCPCS: 85610 ==

== ENCOUNTER 2018-02-24 13:47 | Outpatient (CLI) | payer MEDICARE, OTHER | END 2018-02-24 13:48 | disposition home or self-care (01) | LOC: LAB.F 13:47 | PROVIDERS: ATTEND Internal Medicine | DX: I48.0 Paroxysmal atrial fibrillation (principal) | CPT/HCPCS: 85610 ==

== ENCOUNTER 2018-03-11 11:09 | Outpatient (CLI) | payer MEDICARE, OTHER | END 2018-03-11 11:10 | disposition home or self-care (01) | LOC: LAB.F 11:09 | PROVIDERS: ATTEND Internal Medicine | DX: I48.0 Paroxysmal atrial fibrillation (principal) | CPT/HCPCS: 85610 ==

== ENCOUNTER 2018-04-06 13:19 | Outpatient (CLI) | payer MEDICARE, OTHER | END 2018-04-06 13:20 | disposition home or self-care (01) | LOC: LAB.F 13:19 | PROVIDERS: ATTEND Internal Medicine | DX: I48.0 Paroxysmal atrial fibrillation (principal) | CPT/HCPCS: 85610 ==

== ENCOUNTER 2018-05-05 08:00 | Outpatient (CLI) | payer MEDICARE, OTHER | END 2018-05-05 23:59 | disposition home or self-care (01) | LOC: LAB.F 08:00 | PROVIDERS: ATTEND Internal Medicine | DX: I48.0 Paroxysmal atrial fibrillation (principal) | CPT/HCPCS: 85610 ==

== ENCOUNTER 2018-06-23 08:00 | Outpatient (CLI) | payer MEDICARE, OTHER | END 2018-06-23 23:59 | disposition home or self-care (01) | LOC: LAB.F 08:00 | PROVIDERS: ATTEND Internal Medicine | DX: I48.0 Paroxysmal atrial fibrillation (principal) | CPT/HCPCS: 85610 ==

== ENCOUNTER 2018-08-10 14:09 | Outpatient (CLI) | payer MEDICARE, OTHER | END 2018-08-10 14:10 | disposition home or self-care (01) | LOC: LAB.F 14:09 | PROVIDERS: ATTEND Internal Medicine | DX: I48.0 Paroxysmal atrial fibrillation (principal) | CPT/HCPCS: 85610 ==

== ENCOUNTER 2018-10-02 13:05 | Outpatient (CLI) | payer MEDICARE, OTHER | END 2018-10-02 13:06 | disposition home or self-care (01) | LOC: LAB.F 13:05 | PROVIDERS: ATTEND Internal Medicine | DX: I48.0 Paroxysmal atrial fibrillation (principal) | CPT/HCPCS: 85610 ==

== ENCOUNTER 2018-10-05 14:24 | Outpatient (CLI) | payer MEDICARE, OTHER | END 2018-10-05 14:25 | disposition home or self-care (01) | LOC: LAB.F 14:24 | PROVIDERS: ATTEND Internal Medicine | DX: I48.0 Paroxysmal atrial fibrillation (principal) | CPT/HCPCS: 85610 ==

== ENCOUNTER 2018-10-12 14:39 | Outpatient (CLI) | payer MEDICARE, OTHER | END 2018-10-12 14:40 | disposition home or self-care (01) | LOC: LAB.F 14:39 | PROVIDERS: ATTEND Internal Medicine | DX: I48.0 Paroxysmal atrial fibrillation (principal) | CPT/HCPCS: 85610 ==

== ENCOUNTER 2018-10-30 14:25 | Outpatient (CLI) | payer MEDICARE, OTHER | END 2018-10-30 14:26 | disposition home or self-care (01) | LOC: LAB.S 14:25 | PROVIDERS: ATTEND Internal Medicine | DX: I48.0 Paroxysmal atrial fibrillation (principal) | CPT/HCPCS: 85610 ==

== ENCOUNTER 2018-11-20 | Outpatient (CLI) | payer MEDICARE, OTHER | END 2018-11-20 12:48 | disposition home or self-care (01) | DX: I48.0 Paroxysmal atrial fibrillation (principal) ==

== ENCOUNTER 2018-11-23 | Outpatient (CLI) | payer MEDICARE, OTHER | END 2018-11-23 10:36 | disposition home or self-care (01) | DX: I48.0 Paroxysmal atrial fibrillation (principal) ==

== ENCOUNTER 2018-12-09 10:33 | Outpatient (CLI) | payer MEDICARE, OTHER | END 2018-12-09 10:34 | disposition home or self-care (01) | LOC: LAB.S 10:33 | PROVIDERS: ATTEND Internal Medicine | DX: I48.0 Paroxysmal atrial fibrillation (principal) | CPT/HCPCS: 85610 ==

== ENCOUNTER 2018-12-28 14:13 | Outpatient (CLI) | payer MEDICARE, OTHER | END 2018-12-28 14:14 | disposition home or self-care (01) | LOC: LAB.S 14:13 | PROVIDERS: ATTEND Internal Medicine | DX: I48.0 Paroxysmal atrial fibrillation (principal) | CPT/HCPCS: 85610 ==

== ENCOUNTER 2019-01-04 12:37 | Outpatient (CLI) | payer MEDICARE, OTHER | END 2019-01-04 12:45 | disposition home or self-care (01) | LOC: LAB.S 12:37 | PROVIDERS: ATTEND Internal Medicine | DX: I48.0 Paroxysmal atrial fibrillation (principal) | CPT/HCPCS: 85610 ==

== ENCOUNTER 2019-01-12 13:29 | Outpatient (CLI) | payer MEDICARE, OTHER | END 2019-01-12 13:30 | disposition home or self-care (01) | LOC: LAB.S 13:29 | PROVIDERS: ATTEND Internal Medicine | DX: I48.0 Paroxysmal atrial fibrillation (principal) | CPT/HCPCS: 85610 ==

== ENCOUNTER 2019-01-18 13:14 | Outpatient (CLI) | payer MEDICARE, OTHER | END 2019-01-18 13:15 | disposition home or self-care (01) | LOC: LAB.S 13:14 | PROVIDERS: ATTEND Internal Medicine | DX: I48.0 Paroxysmal atrial fibrillation (principal) | CPT/HCPCS: 85610 ==

== ENCOUNTER 2019-01-29 13:13 | Outpatient (CLI) | payer MEDICARE, OTHER | END 2019-01-29 13:14 | disposition home or self-care (01) | LOC: LAB.S 13:13 | PROVIDERS: ATTEND Internal Medicine | DX: I48.0 Paroxysmal atrial fibrillation (principal) | CPT/HCPCS: 85610 ==

== ENCOUNTER 2019-02-09 08:34 | Outpatient (CLI) | payer MEDICARE, OTHER | END 2019-02-09 08:35 | disposition home or self-care (01) | LOC: LAB.S 08:34 | PROVIDERS: ATTEND Internal Medicine | DX: I48.0 Paroxysmal atrial fibrillation (principal) | CPT/HCPCS: 85610 ==

== ENCOUNTER 2019-04-13 10:21 | Outpatient (CLI) | payer MEDICARE, OTHER | END 2019-04-13 10:22 | disposition home or self-care (01) | LOC: LAB.S 10:21 | PROVIDERS: ATTEND Internal Medicine | DX: I48.0 Paroxysmal atrial fibrillation (principal) | CPT/HCPCS: 85610 ==

== ENCOUNTER 2019-04-22 12:08 | Outpatient (CLI) | payer MEDICARE, OTHER | END 2019-04-22 12:09 | disposition home or self-care (01) | LOC: LAB.S 12:08 | PROVIDERS: ATTEND Internal Medicine | DX: I48.0 Paroxysmal atrial fibrillation (principal) | CPT/HCPCS: 85610 ==

== ENCOUNTER 2019-06-11 13:31 | Outpatient (CLI) | payer MEDICARE, OTHER | END 2019-06-11 13:32 | disposition home or self-care (01) | LOC: LAB.S 13:31 | PROVIDERS: ATTEND Internal Medicine | DX: I48.0 Paroxysmal atrial fibrillation (principal) | CPT/HCPCS: 85610 ==

== ENCOUNTER 2019-09-27 15:17 | Outpatient (CLI) | payer MEDICARE, OTHER | END 2019-09-27 15:18 | disposition home or self-care (01) | LOC: LAB.S 15:17 | PROVIDERS: ATTEND Internal Medicine | DX: I48.0 Paroxysmal atrial fibrillation (principal) | CPT/HCPCS: 85610 ==

== ENCOUNTER 2019-10-11 09:40 | Outpatient (CLI) | payer MEDICARE, OTHER | END 2019-10-11 09:41 | disposition home or self-care (01) | LOC: LAB.S 09:40 | PROVIDERS: ATTEND Internal Medicine | DX: I48.0 Paroxysmal atrial fibrillation (principal) | CPT/HCPCS: 85610 ==

== ENCOUNTER 2019-10-15 09:55 | Outpatient (CLI) | payer MEDICARE, OTHER | END 2019-10-15 09:56 | disposition home or self-care (01) | LOC: LAB.S 09:55 | PROVIDERS: ATTEND Internal Medicine | DX: I48.0 Paroxysmal atrial fibrillation (principal) | CPT/HCPCS: 85610 ==

== ENCOUNTER 2019-11-08 12:10 | Outpatient (CLI) | payer MEDICARE, OTHER | END 2019-11-08 12:11 | disposition home or self-care (01) | LOC: LAB.S 12:10 | PROVIDERS: ATTEND Internal Medicine | DX: I48.0 Paroxysmal atrial fibrillation (principal) | CPT/HCPCS: 85610 ==

== ENCOUNTER 2019-12-16 12:28 | Outpatient (CLI) | payer MEDICARE, OTHER | END 2019-12-16 12:29 | disposition home or self-care (01) | LOC: LAB.S 12:28 | PROVIDERS: ATTEND Internal Medicine | DX: I48.0 Paroxysmal atrial fibrillation (principal) | CPT/HCPCS: 85610 ==

== ENCOUNTER 2019-12-23 13:55 | Outpatient (CLI) | payer MEDICARE, OTHER | END 2019-12-23 13:56 | disposition home or self-care (01) | LOC: LAB.S 13:55 | PROVIDERS: ATTEND Internal Medicine | DX: I48.0 Paroxysmal atrial fibrillation (principal) | CPT/HCPCS: 85610 ==

== ENCOUNTER 2020-01-13 15:27 | Outpatient (CLI) | payer MEDICARE, OTHER | END 2020-01-13 15:28 | disposition home or self-care (01) | LOC: LAB.S 15:27 | PROVIDERS: ATTEND Internal Medicine | DX: I48.0 Paroxysmal atrial fibrillation (principal) | CPT/HCPCS: 85610 ==

== ENCOUNTER 2020-01-21 11:56 | Outpatient (CLI) | payer MEDICARE, OTHER | END 2020-01-21 11:57 | disposition home or self-care (01) | LOC: LAB.S 11:56 | PROVIDERS: ATTEND Internal Medicine | DX: I48.0 Paroxysmal atrial fibrillation (principal) | CPT/HCPCS: 85610 ==

== ENCOUNTER 2020-02-14 12:43 | Outpatient (CLI) | payer MEDICARE, OTHER | END 2020-02-14 12:44 | disposition home or self-care (01) | LOC: LAB.S 12:43 | PROVIDERS: ATTEND Internal Medicine | DX: I48.0 Paroxysmal atrial fibrillation (principal) | CPT/HCPCS: 85610 ==

== ENCOUNTER 2020-05-16 13:22 | Outpatient (CLI) | payer MEDICARE, OTHER | END 2020-05-16 13:23 | disposition home or self-care (01) | LOC: COV 13:22 | PROVIDERS: ATTEND Family Medicine | DX: M79.10 Myalgia, unspecified site (principal); R07.0 Pain in throat; R19.7 Diarrhea, unspecified; Z20.822 Contact with and (suspected) exposure to COVID-19 ==

== ENCOUNTER 2020-06-15 14:28 | Outpatient (CLI) | payer MEDICARE, OTHER | END 2020-06-15 14:29 | disposition home or self-care (01) | LOC: LAB.S 14:28 | PROVIDERS: ATTEND Internal Medicine | DX: I48.0 Paroxysmal atrial fibrillation (principal) | CPT/HCPCS: 85610 ==

== ENCOUNTER 2020-07-04 13:12 | Outpatient (CLI) | payer MEDICARE, OTHER | END 2020-07-04 13:13 | disposition home or self-care (01) | LOC: LAB.S 13:12 | PROVIDERS: ATTEND Internal Medicine | DX: I48.0 Paroxysmal atrial fibrillation (principal) | CPT/HCPCS: 85610 ==

== ENCOUNTER 2020-10-10 12:38 | Outpatient (CLI) | payer MEDICARE, OTHER | END 2020-10-10 12:39 | disposition home or self-care (01) | LOC: LAB.S 12:38 | PROVIDERS: ATTEND Transplant Surgery | DX: I48.0 Paroxysmal atrial fibrillation (principal); N40.1 Benign prostatic hyperplasia with lower urinary tract symptoms; N13.8 Other obstructive and reflux uropathy | CPT/HCPCS: 36416; 85610; 87086; 87181 ==

== ENCOUNTER 2021-01-15 14:39 | Outpatient (CLI) | payer MEDICARE, OTHER | END 2021-01-15 14:40 | disposition home or self-care (01) | LOC: LAB.S 14:39 | PROVIDERS: ATTEND Internal Medicine | DX: I48.0 Paroxysmal atrial fibrillation (principal) | CPT/HCPCS: 36416; 85610 ==

== ENCOUNTER 2021-08-03 14:11 | Outpatient (CLI) | payer MEDICARE, OTHER | END 2021-08-03 14:12 | disposition home or self-care (01) | LOC: LAB.S 14:11 | PROVIDERS: ATTEND Internal Medicine | DX: I48.0 Paroxysmal atrial fibrillation (principal) | CPT/HCPCS: 36416; 85610 ==

== ENCOUNTER 2021-08-15 10:02 | Outpatient (CLI) | payer MEDICARE, OTHER | END 2021-08-15 10:03 | disposition home or self-care (01) | LOC: LAB.S 10:02 | PROVIDERS: ATTEND Internal Medicine | DX: I48.0 Paroxysmal atrial fibrillation (principal) | CPT/HCPCS: 36416; 85610 ==

== ENCOUNTER 2021-08-21 12:05 | Outpatient (CLI) | payer MEDICARE, OTHER | END 2021-08-21 12:06 | disposition home or self-care (01) | LOC: LAB.S 12:05 | PROVIDERS: ATTEND Internal Medicine | DX: I48.0 Paroxysmal atrial fibrillation (principal) | CPT/HCPCS: 36416; 85610 ==

== ENCOUNTER 2021-08-23 10:02 | Outpatient (CLI) | payer MEDICARE, OTHER | END 2021-08-23 10:03 | disposition home or self-care (01) | LOC: LAB.S 10:02 | PROVIDERS: ATTEND Internal Medicine | DX: I48.0 Paroxysmal atrial fibrillation (principal) | CPT/HCPCS: 36416; 85610 ==

== ENCOUNTER 2021-08-27 10:48 | Outpatient (CLI) | payer MEDICARE, OTHER ==
[2021-08-27 14:17] LABS: BASOPHILS % (AUTO) 0.5 %; EOSINOPHILS # (AUTO) 0.1 10^3/uL (0.0-0.7); EOSINOPHILS % (AUTO) 1.7 %; HCT - HEMATOCRIT 39.8 % (42.0-52.0); HGB - HEMOGLOBIN 12.7 g/dL (14.0-18.0); LYMPHOCYTES # (AUTO) 1.4 10^3/uL (1.5-3.5); LYMPHOCYTES % (AUTO) 21.5 %; MEAN CORPUSCULAR HEMOGLOBIN 29.5 pg (27.0-31.0); MEAN CORPUSCULAR HGB CONC 31.9 g/dL (32.0-36.0); MEAN CORPUSCULAR VOLUME 92.3 fL (80.0-94.0); MEAN PLATELET VOLUME 10.8 fL (7.4-11.4); MONOCYTES # (AUTO) 0.6 10^3/uL (0.0-1.0); MONOCYTES % (AUTO) 8.9 %; NEUTROPHILS # (AUTO) 4.3 10^3/uL (1.5-6.6); NEUTROPHILS % (AUTO) 67.1 %; PLT - PLATELET COUNT 343 10^3/uL (130-450); RED BLOOD COUNT 4.31 10^6/uL (4.70-6.10); RED CELL DISTRIBUTION WIDTH 15.1 % (12.0-15.0); WHITE BLOOD COUNT 6.4 x10^3/uL (4.8-10.8)
== END 2021-08-27 10:49 | disposition home or self-care (01) ==
LOC: LAB.S 10:48
PROVIDERS: ATTEND Internal Medicine
DX: I48.0 Paroxysmal atrial fibrillation (principal); K62.5 Hemorrhage of anus and rectum
CPT/HCPCS: 36415; 36416; 85025; 85610

== ENCOUNTER 2021-08-30 23:51 | Emergency (ER) | payer MEDICARE, OTHER ==
--- NOTE | 2021-08-31 01:28 | Ultrasound Report ---
PROCEDURE: Duplex Ext Veins Bilateral INDICATIONS: MAGALIE RAMIREZ TECHNIQUE: Real-time imaging, as well as color and pulse Doppler interrogation, were performed of the deep veins of both legs from the inguinal ligament to the popliteal fossa. COMPARISON: None available. FINDINGS: The deep veins are normally compressible, and free of intraluminal thrombus. Color and pu lse Doppler demonstrate normal phasic intravascular flow. There is normal augmentation response to d istal compression maneuver. Bilateral knee joint effusions noted. IMPRESSION: 1. No evidence of deep venous thrombosis in the right or left lower extremity. Reviewed by: Logan Anaya MD on 08/31/2021 1:30 AM PDT Approved by: Logan Anaya MD on 08/31/2021 1:30 AM PDT Station ID: [id number]
--- NOTE | 2021-08-31 02:23 | ED Physician Documentation ---
History of Present Illness - Stated complaint Stated Complaint: SORE LEGS - Chief complaint Chief Complaint: Ext Problem - History obtained from History obtained from: Patient - History of Present Illness Timing: Today Pain level max: 0 Pain level now: 0 - Additonal information Additional information: c/o bilateral proximal anteromedial thigh pain associated with focal swelling, distinctly worse/brought on by standing, seems to resolve with lying down. He has h/o RLE DVT and PE for which he is on warfarin. Recently stopped warfarin for medical procedure but has resumed for a few days, and PMD instructed him (per patient) to take larger dose for just today to raise INR rapidly accepting that he might have slightly elevated INR short-term; this was advised due to c/o BLE swelling and pain after having stopped the warfarin. Review of Systems Constitutional: reports: Reviewed and negative Cardiac: reports: Reviewed and negative Respiratory: reports: Reviewed and negative GI: reports: Reviewed and negative : denies: Dysuria, Hematuria Musculoskeletal: reports: Extremity swelling (focal BLE anteroproximal thighs and only when standing). denies: Extremity pain, Joint swelling, Pain with weight bearing Neurologic: denies: Focal weakness, Numbness PD PAST MEDICAL HISTORY - Past Medical History Cardiovascular: Deep vein thrombosis, Pulmonary embolism Endocrine/Autoimmune: Type 2 diabetes GI: GERD, Ulcers, Hiatal hernia : None Psych: None Musculoskeletal: Gout - Past Surgical History Past Surgical History: Yes General: Hiatal hernia repair Ortho: Knee replacement, Arthroscopic surgery, Other Derm: Other - Present Medications Home Medications: Ambulatory Orders Medication Instructions Recorded Confirmed Cholecalciferol (Vitamin D3) 400 unit PO DAILY 08/26/13 12/06/16 [Vitamin D3] Cyanocobalamin/Folic Acid [Vitamin 1 tab PO DAILY 08/26/13 12/06/16 [id number] Acid Tablet] Gabapentin [Neurontin] 300 mg PO BID 08/26/13 12/06/16 Acetaminophen [Tylenol] 650 mg PO Q4HR PRN #0 tablet 01/25/16 12/06/16 Atorvastatin [Lipitor] 40 mg PO QPM tablet 01/25/16 12/06/16 Metoprolol Tartrate [Lopressor] 12.5 mg PO BID #60 tablet 01/25/16 12/06/16 Warfarin [Coumadin] 7.5 mg PO QPM tablet 01/25/16 12/06/16 metFORMIN [Glucophage] 500 mg PO BIDWM 12/06/16 12/06/16 raNITIdine [Zantac] 150 mg PO DAILY 12/06/16 12/06/16 - Allergies Allergies/Adverse Reactions: Allergies Allergy/AdvReac Type Severity Reaction Status Date / Time neosporin ointment AdvReac Intermediate Rash Uncoded 01/24/16 12:15 - Social History Does the pt smoke?: No Smoking Status: Former smoker Does the pt drink ETOH?: Yes Does the pt have substance abuse?: No - Immunizations Immunizations are current?: Yes - POLST Patient has POLST: No PD ED PE NORMAL - Vitals Vital signs reviewed: Yes - General General: Alert and oriented X 3, No acute distress, Well developed/nourished - Cardiac Cardiac: RRR, No murmur - Respiratory Respiratory: No respiratory distress, Clear bilaterally - Abdomen Abdomen: Soft, Non tender, Non distended - Derm Derm: Normal color, Warm and dry, No rash - Extremities Extremities: No deformity, No tenderness to palpate, Normal ROM s pain, No edema, Other (right proximal anteromedial thigh (and same on left proximal anteromedial thigh but less pronounced): tortuous veinous varicosity from just proximal to knee to upper thigh, only visible and palpable when standing, immediately resolved with lying supine. No cord, no erythema) Results - Vitals Vitals: Oxygen O2 Source Room air - Rads (name of study) BLE venous US Radiology: Prelim report reviewed, See rad report PD MEDICAL DECISION MAKING - ED course Complexity details: reviewed results, re-evaluated patient, considered differential, d/w patient ED course: visible right thigh vein varicocity (right anteromedial thigh) when he stands up, immediately resolved when lying supine. I do not see similar lesion of left thigh. US does not reveal any DVT nor SVT BLE. Incidental note of bilateral knee effusions noted. Results d/w patient, return precautions discssed. Departure - Departure Disposition: 01 Home, Self Care Clinical Impression: Varicose vein of leg Qualifiers: Varicose vein complication: pain Laterality: right Qualified Code(s): I83.811 - Varicose veins of right lower extremity with pain Condition: Good Instructions: ED Veins Varicose Comments: The ultrasound of both legs did not show any evidence of DVT (deep venous thrombosis or deep vein clot), nor superficial clots. An incidental note of fluid in the knee joints is noted, but this would not explain your symptoms. Further emergent testing is not indicated at this time, but you should follow up with your doctor for reevaluation of your symptoms. Discharge Date/Time: 08/31/21 02:53
[2021-08-31 02:54] VITALS: BP 148/89
== END 2021-08-31 02:53 | disposition home or self-care (01) ==
LOC: ED 23:51
DX: I83.811 Varicose veins of right lower extremity with pain (principal); I48.0 Paroxysmal atrial fibrillation; E11.9 Type 2 diabetes mellitus without complications; Z79.84 Long term (current) use of oral hypoglycemic drugs; Z79.01 Long term (current) use of anticoagulants; Z87.891 Personal history of nicotine dependence
CPT/HCPCS: 36415; 36416; 85610; 85730; 93970; 99282; 99284

== ENCOUNTER 2021-08-31 12:33 | Outpatient (CLI) | payer MEDICARE, OTHER | END 2021-08-31 12:34 | disposition home or self-care (01) | LOC: LAB.S 12:33 | PROVIDERS: ATTEND Internal Medicine | DX: I48.0 Paroxysmal atrial fibrillation (principal) | CPT/HCPCS: 36415; 36416; 85610; 85730 ==

== ENCOUNTER 2021-09-04 10:35 | Outpatient (CLI) | payer MEDICARE, OTHER | END 2021-09-04 10:36 | disposition home or self-care (01) | LOC: LAB.S 10:35 | PROVIDERS: ATTEND Internal Medicine | DX: I48.0 Paroxysmal atrial fibrillation (principal) | CPT/HCPCS: 36416; 85610 ==

== ENCOUNTER 2021-11-12 10:16 | Outpatient (CLI) | payer MEDICARE, OTHER | END 2021-11-12 10:17 | disposition home or self-care (01) | LOC: LAB.S 10:16 | PROVIDERS: ATTEND Internal Medicine | DX: I48.0 Paroxysmal atrial fibrillation (principal) | CPT/HCPCS: 36416; 85610 ==

== ENCOUNTER 2022-02-27 10:29 | Outpatient (CLI) | payer MEDICARE, OTHER | END 2022-02-27 10:30 | disposition home or self-care (01) | LOC: LAB.S 10:29 | PROVIDERS: ATTEND Internal Medicine | DX: I48.0 Paroxysmal atrial fibrillation (principal) | CPT/HCPCS: 36416; 85610 ==

== ENCOUNTER 2022-04-12 16:39 | Outpatient (CLI) | payer MEDICARE, OTHER ==
--- NOTE | 2022-04-12 15:57 | XRAY Report ---
PROCEDURE: Knee 4 View RT INDICATIONS: RIGHT KNEE CONTUSION TECHNIQUE: 4 views of the right knee(s) were acquired. COMPARISON: None. FINDINGS: Bones: Expected appearance of total right knee arthroplasty. No evidence of hardware failure or loos ening. No fractures or dislocations. No suspicious bony lesions. Soft tissues: No joint effusion. No suspicious soft tissue calcifications. IMPRESSION: Expected appearance of total right knee arthroplasty. No acute fracture or dislocation s een. Reviewed by: Po Pelayo MD on 04/12/2022 3:56 PM PST Approved by: Po Pelayo MD on 04/12/2022 3:56 PM PST Station ID: [id number]
== END 2022-04-12 16:40 | disposition home or self-care (01) ==
LOC: DI.S 16:39
PROVIDERS: ATTEND Physician Assistant Medical
DX: S80.01XA Contusion of right knee, initial encounter (principal); Z96.651 Presence of right artificial knee joint

== ENCOUNTER 2022-06-28 11:06 | Outpatient (CLI) | payer MEDICARE | END 2022-06-28 11:07 | disposition home or self-care (01) | LOC: LAB.S 11:06 | PROVIDERS: ATTEND Internal Medicine | DX: I48.0 Paroxysmal atrial fibrillation (principal) | CPT/HCPCS: 36416; 85610 ==

== ENCOUNTER 2022-07-25 08:43 | Outpatient (CLI) | payer MEDICARE | END 2022-07-25 08:44 | disposition critical access hospital (66) | LOC: EMS 08:43 | DX: R55 Syncope and collapse (principal); M25.552 Pain in left hip; S70.02XA Contusion of left hip, initial encounter; W01.0XXA Fall on same level from slipping, tripping and stumbling without subsequent striking against object, initial encounter; Z79.01 Long term (current) use of anticoagulants | CPT/HCPCS: A0425; A0429 ==

== ENCOUNTER 2022-07-25 09:23 | Emergency (ER) | payer MEDICARE ==
[2022-07-25] MEDS ORDERED: SODIUM CHLORIDE 0.9% 500 ML IV STA (09:47)
--- NOTE | 2022-07-25 09:48 | ED Physician Documentation ---
PD HPI SYNCOPE - Stated complaint Stated Complaint: FALL - History obtained from History obtained from: Patient - History of Present Illness Witnessed: Unwitnessed Timing - onset: Today Duration: Seconds (the patient says he got up from sitting and felt pain left gluteal. Then started to feel lightheaded and almost fainted but sat down and recovered. He felt sweaty and some nausea. no chest pain nor headache.) Preceding symptoms: Nausea / vomiting, Light headed, Other (left gluteal/hip pain from recent injury.). No: Headache, Chest pain, Abdominal pain Associated symptoms: Nausea / vomiting, Other (gluteal pain). No: Headache, Chest pain, Abdominal pain Contributing factors: Noxious stimulae (he had slipped and fell 2 days ago, landing left buttock. Has pain and swelling in gluteal area that has been tender to sit, and pain with hip movement.), Just stood up, Other (he is on warfarin for chronic atrial fib.). No: Recent med change, Decreased PO intake Injury occurred: No: Head injury, Neck injury Similar symptoms before: Has not had sx before Recently seen: Not recently seen Review of Systems Constitutional: denies: Fever, Chills Nose: denies: Rhinorrhea / runny nose, Congestion Throat: denies: Sore throat Cardiac: denies: Chest pain / pressure, Pedal edema, Calf pain Respiratory: denies: Cough GI: reports: Nausea. denies: Abdominal Pain, Vomiting, Diarrhea, Bloody / black stool Neurologic: denies: Focal weakness, Numbness, Altered mental status, Headache, Head injury PD PAST MEDICAL HISTORY - Past Medical History Cardiovascular: Deep vein thrombosis, Pulmonary embolism, Atrial fibrillation Respiratory: None Neuro: None Endocrine/Autoimmune: Type 2 diabetes GI: GERD, Ulcers, Hiatal hernia : None Psych: None Musculoskeletal: Gout - Past Surgical History Past Surgical History: Yes General: Hiatal hernia repair Ortho: Knee replacement, Arthroscopic surgery, Other Derm: Other - Present Medications Home Medications: Ambulatory Orders Medication Instructions Recorded Confirmed Cholecalciferol (Vitamin D3) 400 unit PO DAILY 08/26/13 12/06/16 [Vitamin D3] Cyanocobalamin/Folic Acid [Vitamin 1 tab PO DAILY 08/26/13 12/06/16 G06-Eyfep Acid Tablet] Gabapentin [Neurontin] 300 mg PO BID 08/26/13 12/06/16 Acetaminophen [Tylenol] 650 mg PO Q4HR PRN #0 tablet 01/25/16 12/06/16 Atorvastatin [Lipitor] 40 mg PO QPM tablet 01/25/16 12/06/16 Metoprolol Tartrate [Lopressor] 12.5 mg PO BID #60 tablet 01/25/16 12/06/16 Warfarin [Coumadin] 7.5 mg PO QPM tablet 01/25/16 12/06/16 metFORMIN [Glucophage] 500 mg PO BIDWM 12/06/16 12/06/16 raNITIdine [Zantac] 150 mg PO DAILY 12/06/16 12/06/16 - Allergies Allergies/Adverse Reactions: Allergies Allergy/AdvReac Type Severity Reaction Status Date / Time neosporin ointment AdvReac Intermediate Rash Uncoded 01/24/16 12:15 - Social History Does the pt smoke?: No Smoking Status: Former smoker Does the pt drink ETOH?: Yes Does the pt have substance abuse?: No - Immunizations Immunizations are current?: Yes - POLST Patient has POLST: No PD ED PE NORMAL - Vitals Vital signs reviewed: Yes - General General: Alert and oriented X 3, No acute distress, Well developed/nourished - HEENT HEENT: Atraumatic - Neck Neck: Supple, no meningeal sign, No bony TTP, No adenopathy - Cardiac Cardiac: No murmur. No: RRR (irregular c/w atrial fib but rate controlled 60- 80.) - Respiratory Respiratory: Clear bilaterally - Abdomen Abdomen: Soft, Non tender - Back Back: No spinal TTP, Other (left gluteal area with tenderness and firm swelling c/w contusion/hematoma. ) - Derm Derm: Normal color, Warm and dry - Neuro Neuro: Alert and oriented X 3, No motor deficit, No sensory deficit, Normal speech Results - Vitals Vitals: Vital Signs - 24 hr 07/25/22 07/25/22 07/25/22 11:49 12:10 13:16 Heart Rate 65 70 68 Respiratory 18 14 18 Rate Blood Pressure 155/83 H 153/88 H O2 Saturation 98 97 97 Oxygen O2 Source Room air - EKG (time done) 10:15 EKG releavant findings:: EKG personally interpreted by author of this note. Relevant findings are: Rate: Rate (enter#) (64) Rhythm: Atrial fibrillation Ischemia: Normal ST segments, Non specific changes. No: ST elevation c/w ischemia, ST depression - Labs Labs: Laboratory Tests 07/25/22 07/25/22 07/25/22 10:23 10:23 10:23 WBC 12.6 H RBC 4.45 L Hgb 13.3 L Hct 41.3 L MCV 92.8 MCH 29.9 MCHC 32.2 RDW 15.0 Plt Count 372 MPV 10.1 Neut # (Auto) 10.4 H Lymph # (Auto) 1.1 L [place] # (Auto) 1.0 Eos # (Auto) 0.0 Baso # (Auto) 0.0 Absolute Nucleated RBC 0.00 Nucleated RBC % 0.0 PT 36.4 H INR 3.5 H Sodium 141 Potassium 3.6 Chloride 108 Carbon Dioxide 25 Anion Gap 8.0 BUN 17 Creatinine 0.9 Estimated GFR (MDRD) 81 L Glucose 148 H Calcium 9.2 Magnesium 1.7 Total Bilirubin 2.1 H AST 27 ALT 27 Alkaline Phosphatase 52 Troponin I High Sens B-Natriuretic Peptide Total Protein 7.1 Albumin 4.4 Globulin 2.7 Albumin/Globulin Ratio 1.6 Lipase 26 07/25/22 07/25/22 10:23 10:23 WBC RBC Hgb Hct MCV MCH MCHC RDW Plt Count MPV Neut # (Auto) Lymph # (Auto) [place] # (Auto) Eos # (Auto) Baso # (Auto) Absolute Nucleated RBC Nucleated RBC % PT INR Sodium Potassium Chloride Carbon Dioxide Anion Gap BUN Creatinine Estimated GFR (MDRD) Glucose Calcium Magnesium Total Bilirubin AST ALT Alkaline Phosphatase Troponin I High Sens 19.0 B-Natriuretic Peptide 162 H Total Protein Albumin Globulin Albumin/Globulin Ratio Lipase - Rads (name of study) head ct Relevant Findings:: Prelim report reviewed, EMP independent interpretation of test (no iCH nor acute process. ), See rad report left hip xray Relevant Findings:: Prelim report reviewed, EMP independent interpretation of test (no fractures), See rad report PD Medical Decision Making - ED course Complexity details: reviewed results (xray of hip without bony abnormality. Head CT nromal. ), considered differential (he had slip and fall with gluteal hematoma couple days ago. Has had pain there. [place] pain getting up this morning and noted lightheaded and near syncope. Did not fall today. No chest pain. Consider vasovagal from pain stimulus, but also concern for low blood count with hematoma, CO, Rhythm, etc.), d/w patient ED course: seems likely pain related vasovagal. Hgb is normal for him (13.3 and has been that level for prior blood counts in lab database), so not acutely anemic from the hematoma. ECG rate controlled atrial fib, and monitor here without changes in HR. Negative troponin, so no acute heart injury. Blood sugar was normal [facility]. No other acute process to account for the near syncope. He has tenderness in gluteal area with palpable hematoma. Xray of hip without fracture. Considered but did not see need for CT to evalaute as clinically apparent. He is having vein varicosity surgery next week and is supposed to stop coumadin tomorrow night and start lovenox instead on Friday. Since INR at 3.5, I suggested just stopping the coumadin today, since would have had him hold a dose anyway. Departure - Departure Disposition: 01 Home, Self Care Clinical Impression: Contusion of buttock, Hematoma, Anticoagulant long-term use, Near syncope, Atrial fibrillation, chronic Condition: Stable Record reviewed to determine appropriate education?: Yes Instructions: ED Near Syncope Unkn Comments: No signs of significant abnormality based on your current blood tests, heart monitor and blood pressure. No signs of heart attack or unusual heart rhythm other than your rate controlled atrial fibrillation. Your INR was slightly above therapeutic at 3.5. Since you were to stop your Coumadin after tonight's dose in order to have your varicose vein procedure next week, I would suggest just not taking it tonight either. Your hip x-ray does not show any bony abnormalities. Obviously there is some swelling there and presumably some bruising in the muscle from the fall. This will be sore. Tylenol if needed. I presume your near fainting episode was a transient drop in blood pressure. There may have been some vertigo associated as well. You appear well at this time. I would not anticipate repeat episodes. Stay well-hydrated and continue usual medicines except as noted above regarding the Coumadin. Return if repeat episodes occur. Discharge Date/Time: 07/25/22 13:49
--- NOTE | 2022-07-25 10:24 | CT Report ---
PROCEDURE: HEAD WO INDICATIONS: fall, on ocumadin TECHNIQUE: Noncontrast 4.5 mm thick angled axial sections acquired from the foramen magnum to the vertex. For r adiation dose reduction, the following was used: automated exposure control, adjustment of mA and/or kV according to patient size. COMPARISON: None. FINDINGS: Image quality: Excellent. CSF spaces: Basal cisterns are patent. No extra-axial fluid collections. Ventricles are normal in size and shape. Brain: No midline shift. No intracranial masses or hemorrhage. Sood-white matter interface is norm al. Age-related volume loss and small vessel ischemic change. Intracranial carotid artery calcificat ions. Skull and face: Calvarium and visualized facial bones are intact, without suspicious lesions. Sinuses: Visualized sinuses and mastoids are clear. IMPRESSION: No acute intracranial pathology Reviewed by: Po Pelayo MD on 07/25/2022 10:22 AM PDT Approved by: Po Pelayo MD on 07/25/2022 10:22 AM PDT Station ID: [id number]
[2022-07-25 10:57] LABS: BASOPHILS % (AUTO) 0.3 %; EOSINOPHILS % (AUTO) 0.2 %; HCT - HEMATOCRIT 41.3 % (42.0-52.0); HGB - HEMOGLOBIN 13.3 g/dL (14.0-18.0); LYMPHOCYTES # (AUTO) 1.1 10^3/uL (1.5-3.5); LYMPHOCYTES % (AUTO) 8.3 %; MEAN CORPUSCULAR HEMOGLOBIN 29.9 pg (27.0-31.0); MEAN CORPUSCULAR HGB CONC 32.2 g/dL (32.0-36.0); MEAN CORPUSCULAR VOLUME 92.8 fL (80.0-94.0); MEAN PLATELET VOLUME 10.1 fL (7.4-11.4); MONOCYTES % (AUTO) 8.2 %; NEUTROPHILS # (AUTO) 10.4 10^3/uL (1.5-6.6); NEUTROPHILS % (AUTO) 82.6 %; PLT - PLATELET COUNT 372 10^3/uL (130-450); RED BLOOD COUNT 4.45 10^6/uL (4.70-6.10); WHITE BLOOD COUNT 12.6 x10^3/uL (4.8-10.8)
--- NOTE | 2022-07-25 11:02 | XRAY Report ---
PROCEDURE: Hip w/Pelvis 2-3V LT INDICATIONS: fell, hip swelling TECHNIQUE: AP pelvis with lateral view(s) of the left hip(s). COMPARISON: None. FINDINGS: Bones: No fractures or dislocations. Pelvic ring appears intact. No suspicious bony lesions. Soft tissues: The visualized bowel gas pattern is normal. No suspicious soft tissue calcifications. IMPRESSION: No evidence acute bony abnormality of the pelvis and left hip. If clinical suspicion and/or symptoms persist, further assessment with repeat plain films or advanced imaging (e.g., CT, MRI, or bone scan) may be helpful for further assessment. Reviewed by: Po Pelayo MD on 07/25/2022 11:01 AM PDT Approved by: Po Pelayo MD on 07/25/2022 11:01 AM PDT Station ID: [id number]
[2022-07-25 11:06] LABS: INR 3.5 (0.8-1.2); PT - PROTHROMBIN TIME 36.4 secs (9.9-12.6)
[2022-07-25 11:15] LABS: ALBUMIN 4.4 g/dL (3.2-5.5); ALBUMIN/GLOBULIN RATIO 1.6 (1.0-2.2); BILIRUBIN,TOTAL 2.1 mg/dL (0.2-1.0); CALCIUM 9.2 mg/dL (8.5-10.3); CREATININE 0.9 mg/dL (0.6-1.2); MAGNESIUM 1.7 mg/dL (1.7-2.8); POTASSIUM 3.6 mmol/L (3.5-5.0); TOTAL PROTEIN 7.1 g/dL (6.7-8.2)
[2022-07-25 13:19] VITALS: BP 153/88
== END 2022-07-25 13:49 | disposition home or self-care (01) ==
LOC: EDUNIT# → ED 09:23
DX: R55 Syncope and collapse (principal); S30.0XXA Contusion of lower back and pelvis, initial encounter; W19.XXXA Unspecified fall, initial encounter; I48.91 Unspecified atrial fibrillation; I83.90 Asymptomatic varicose veins of unspecified lower extremity; Z87.891 Personal history of nicotine dependence; Z79.01 Long term (current) use of anticoagulants
CPT/HCPCS: 36415; 80053; 83690; 83735; 83880; 84484; 85025; 85610; 93005; 99284

== ENCOUNTER 2022-07-29 12:46 | Outpatient (CLI) | payer MEDICARE | END 2022-07-29 12:47 | disposition home or self-care (01) | LOC: LAB.S 12:46 | PROVIDERS: ATTEND Internal Medicine | DX: I48.0 Paroxysmal atrial fibrillation (principal) | CPT/HCPCS: 36416; 85610 ==

== ENCOUNTER 2022-07-30 19:30 | Outpatient (CLI) | payer MEDICARE | END 2022-07-30 19:31 | disposition critical access hospital (66) | LOC: EMS 19:30 | DX: S70.12XA Contusion of left thigh, initial encounter (principal); S70.02XA Contusion of left hip, initial encounter; W18.39XA Other fall on same level, initial encounter | CPT/HCPCS: A0425; A0427 ==

== ENCOUNTER 2022-07-30 20:06 | Emergency (ER) | payer MEDICARE ==
[2022-07-30] MEDS ORDERED: MORPHINE 2 MG/ML CARPUJECT IVP STA (20:31)
--- NOTE | 2022-07-30 21:22 | XRAY Report ---
PROCEDURE: Knee 2 View LT INDICATIONS: knee pain s/p fall last week TECHNIQUE: 2 views of the left knee(s) were acquired. COMPARISON: None. FINDINGS: Bones: Left total knee arthroplasty. No periprosthetic lucency. No fractures or dislocations. No riggs spicious bony lesions. Soft tissues: No effusion. No suspicious soft tissue calcifications or masses. IMPRESSION: No acute osseous abnormality. Expected appearance of the left knee arthroplasty. Reviewed by: Christiano Mocetzuma MD on 07/30/2022 9:20 PM PDT Approved by: Christiano Moctezuma MD on 07/30/2022 9:20 PM PDT Station ID: [id number]
--- NOTE | 2022-07-30 22:08 | XRAY Report ---
PROCEDURE: Hip w/Pelvis 2-3V LT INDICATIONS: hip pain s/p fall last wk TECHNIQUE: AP pelvis with lateral view(s) of the left hip(s). COMPARISON: Pelvic and left hip radiographs 07/25/2022. FINDINGS: Bones: No fractures or dislocations. Pelvic ring appears intact. No suspicious bony lesions. Lumb ar spine fixation hardware. Soft tissues: The visualized bowel gas pattern is normal. No suspicious soft tissue calcifications. Pelvic mesh. IMPRESSION: No acute osseous abnormality identified. If clinically indicated consider CT bony pelvis for further evaluation. Reviewed by: Christiano Moctezuma MD on 07/30/2022 10:07 PM PDT Approved by: Christiano Moctezuma MD on 07/30/2022 10:07 PM PDT Station ID: [id number]
[2022-07-30] MEDS ORDERED: HYDROmorphone 0.5 MG/0.5 ML SYRINGE IVP STA (23:13)
[2022-07-31] MEDS ORDERED: oxyCODONE/ACET 5/325 Prepack 4 PO STA (00:27)
--- NOTE | 2022-07-31 00:28 | ED Physician Documentation ---
History of Present Illness - Stated complaint Stated Complaint: LEG PX - Chief complaint Chief Complaint: Trauma Ext - Additonal information Additional information: 82-year-old man with history of A-fib on Lovenox presents with left hip pain and knee pain status post probable fall last Friday. Patient has been ambulatory since that time but states that he is having severe uncontrollable pain. He called EMS and received 50 Micrograms of fentanyl on route. States that it took the edge off but is still having pain. Review of Systems Skin: reports: Other (Ecchymosis) Musculoskeletal: reports: Extremity pain, Joint pain PD PAST MEDICAL HISTORY - Past Medical History Cardiovascular: Deep vein thrombosis, Pulmonary embolism, Atrial fibrillation Respiratory: None Neuro: None Endocrine/Autoimmune: Type 2 diabetes GI: GERD, Ulcers, Hiatal hernia : None Psych: None Musculoskeletal: Gout - Past Surgical History Past Surgical History: Yes General: Hiatal hernia repair Ortho: Knee replacement, Arthroscopic surgery, Other Derm: Other - Present Medications Home Medications: Ambulatory Orders Medication Instructions Recorded Confirmed Cholecalciferol (Vitamin D3) 400 unit PO DAILY 08/26/13 12/06/16 [Vitamin D3] Cyanocobalamin/Folic Acid [Vitamin 1 tab PO DAILY 08/26/13 12/06/16 W27-Lhubl Acid Tablet] Gabapentin [Neurontin] 300 mg PO BID 08/26/13 12/06/16 Acetaminophen [Tylenol] 650 mg PO Q4HR PRN #0 tablet 01/25/16 12/06/16 Atorvastatin [Lipitor] 40 mg PO QPM tablet 01/25/16 12/06/16 Metoprolol Tartrate [Lopressor] 12.5 mg PO BID #60 tablet 01/25/16 12/06/16 Warfarin [Coumadin] 7.5 mg PO QPM tablet 01/25/16 12/06/16 metFORMIN [Glucophage] 500 mg PO BIDWM 12/06/16 12/06/16 raNITIdine [Zantac] 150 mg PO DAILY 12/06/16 12/06/16 Oxycodone HCl/Acetaminophen 1 each PO Q4H PRN #10 tablet 07/31/22 [Percocet 10-325 mg Tablet] - Allergies Allergies/Adverse Reactions: Allergies Allergy/AdvReac Type Severity Reaction Status Date / Time neosporin ointment AdvReac Intermediate Rash Uncoded 01/24/16 12:15 - Social History Does the pt smoke?: No Smoking Status: Former smoker Does the pt drink ETOH?: Yes Does the pt have substance abuse?: No - Immunizations Immunizations are current?: Yes - POLST Patient has POLST: No PD ED PE NORMAL - Vitals Vital signs reviewed: Yes - General General: Alert and oriented X 3, No acute distress, Well developed/nourished - HEENT HEENT: Atraumatic, PERRL, EOMI - Derm Derm: Other (Ecchymosis to left hip and thigh) - Extremities Extremities: No deformity, Other (Discomfort with range of motion of left hip and knee. 2+ bilateral DP pulses. Normal sensation and movement distally) Results - Vitals Vitals: Vital Signs - 24 hr 07/30/22 07/30/22 07/30/22 20:10 21:22 23:12 Temperature 37.6 C Heart Rate 80 86 87 Respiratory 12 13 12 Rate Blood Pressure 159/105 H 171/85 H 156/91 H O2 Saturation 98 96 96 Oxygen O2 Source Room air PD Medical Decision Making - ED course ED course: 82-year-old man with history of A-fib on Lovenox presents status post fall Friday with ecchymosis to the left hip and thigh. Patient has had improvement in the emergency department with IV morphine. Percocet prescription and prepack provided. Plan to follow-up with his primary care provider for referral to physical therapy. X-rays negative for acute fracture Per my evaluation and independent interpretation of outside radiologist. Return precautions given. Departure - Departure Clinical Impression: Hip pain Condition: Stable Instructions: ED RICE Prescriptions: Oxycodone HCl/Acetaminophen [Percocet 10-325 mg Tablet] 1 each PO Q4H PRN #10 tablet PRN Reason: Pain Comments: You were seen in the emergency department for hip and knee pain. Your x-rays uncovered no breaks in the bone. Please follow-up with your primary care provider for referral to physical therapy. An electronic prescription for Percocet was sent to [facility] in [place]. Return to the emergency department for new or worsening symptoms or other concerns.
[2022-07-31 00:54] VITALS: BP 165/95
== END 2022-07-31 02:02 | disposition home or self-care (01) ==
LOC: EDUNIT# → ED 20:06
DX: M25.552 Pain in left hip (principal); M25.562 Pain in left knee; I48.91 Unspecified atrial fibrillation; E11.9 Type 2 diabetes mellitus without complications; Z79.01 Long term (current) use of anticoagulants; Z87.891 Personal history of nicotine dependence; Z79.899 Other long term (current) drug therapy; Z79.84 Long term (current) use of oral hypoglycemic drugs
CPT/HCPCS: 73502; 73560; 96374; 96375; 99283; J1170

== ENCOUNTER 2022-08-08 10:49 | Outpatient (CLI) | payer MEDICARE | END 2022-08-08 10:50 | disposition home or self-care (01) | LOC: LAB.S 10:49 | PROVIDERS: ATTEND Internal Medicine | DX: I48.0 Paroxysmal atrial fibrillation (principal) | CPT/HCPCS: 36416; 85610 ==

== ENCOUNTER 2022-10-02 10:28 | Outpatient (CLI) | payer MEDICARE | END 2022-10-02 10:29 | disposition home or self-care (01) | LOC: LAB.S 10:28 | PROVIDERS: ATTEND Internal Medicine | DX: I48.0 Paroxysmal atrial fibrillation (principal) | CPT/HCPCS: 36416; 85610 ==

== ENCOUNTER 2022-12-18 10:44 | Outpatient (CLI) | payer MEDICARE | END 2022-12-18 10:45 | disposition home or self-care (01) | LOC: LAB.S 10:44 | PROVIDERS: ATTEND Internal Medicine | DX: I48.0 Paroxysmal atrial fibrillation (principal) | CPT/HCPCS: 36416; 85610 ==

== ENCOUNTER 2023-01-27 14:59 | Outpatient (CLI) | payer MEDICARE | END 2023-01-27 15:00 | disposition home or self-care (01) | LOC: LAB.S 14:59 | PROVIDERS: ATTEND Internal Medicine | DX: I48.0 Paroxysmal atrial fibrillation (principal) | CPT/HCPCS: 36416; 85610 ==

== ENCOUNTER 2023-06-04 11:00 | Outpatient (CLI) | payer MEDICARE ==
[2023-06-04 14:47] LABS: BASOPHILS % (AUTO) 0.6 %; EOSINOPHILS # (AUTO) 0.1 10^3/uL (0.0-0.7); EOSINOPHILS % (AUTO) 2.1 %; HCT - HEMATOCRIT 36.8 % (42.0-52.0); HGB - HEMOGLOBIN 11.4 g/dL (14.0-18.0); LYMPHOCYTES # (AUTO) 1.6 10^3/uL (1.5-3.5); MEAN CORPUSCULAR HEMOGLOBIN 29.2 pg (27.0-31.0); MEAN CORPUSCULAR VOLUME 94.1 fL (80.0-94.0); MEAN PLATELET VOLUME 10.2 fL (7.4-11.4); MONOCYTES # (AUTO) 0.8 10^3/uL (0.0-1.0); MONOCYTES % (AUTO) 11.8 %; PLT - PLATELET COUNT 376 10^3/uL (130-450); RED BLOOD COUNT 3.91 10^6/uL (4.70-6.10); WHITE BLOOD COUNT 6.6 x10^3/uL (4.8-10.8)
[2023-06-04 15:59] LABS: ALBUMIN/GLOBULIN RATIO 1.8 (1.0-2.2); ALKALINE PHOSPHATASE 50 IU/L (42-121); ALT ALANINE AMINOTRANSFERASE 10 IU/L (10-60); AST ASPARTATE AMINOTRANSFERASE 13 IU/L (10-42); BILIRUBIN,TOTAL 0.4 mg/dL (0.2-1.0); BUN - BLOOD UREA NITROGEN 13 mg/dL (6-20); CARBON DIOXIDE - CO2 27 mmol/L (21-32); CHLORIDE 108 mmol/L (101-111); CREATININE 0.9 mg/dL (0.6-1.3); CRP - C-REACTIVE PROTEIN < 0.5 mg/dL (<0.5); GFR - MDRD 81 (>89); GLUCOSE 117 mg/dL (74-104); POTASSIUM 3.9 mmol/L (3.5-4.5); SODIUM 141 mmol/L (135-145); TOTAL PROTEIN 6.2 g/dL (6.4-8.9)
== END 2023-06-04 11:01 | disposition home or self-care (01) ==
LOC: LAB.S 11:00
PROVIDERS: ATTEND Internal Medicine Infectious Disease
DX: T84.51XA Infection and inflammatory reaction due to internal right hip prosthesis, initial encounter (principal)
CPT/HCPCS: 36415; 80053; 85025; 85651; 86140

== ENCOUNTER 2023-06-18 10:45 | Outpatient (CLI) | payer MEDICARE ==
[2023-06-18 15:08] LABS: BASOPHILS % (AUTO) 0.5 %; EOSINOPHILS # (AUTO) 0.1 10^3/uL (0.0-0.7); EOSINOPHILS % (AUTO) 1.5 %; HCT - HEMATOCRIT 37.9 % (42.0-52.0); HGB - HEMOGLOBIN 11.8 g/dL (14.0-18.0); LYMPHOCYTES # (AUTO) 1.7 10^3/uL (1.5-3.5); LYMPHOCYTES % (AUTO) 22.5 %; MEAN CORPUSCULAR HEMOGLOBIN 28.2 pg (27.0-31.0); MEAN CORPUSCULAR HGB CONC 31.1 g/dL (32.0-36.0); MEAN CORPUSCULAR VOLUME 90.7 fL (80.0-94.0); MEAN PLATELET VOLUME 9.7 fL (7.4-11.4); MONOCYTES # (AUTO) 0.8 10^3/uL (0.0-1.0); MONOCYTES % (AUTO) 10.4 %; NEUTROPHILS # (AUTO) 4.8 10^3/uL (1.5-6.6); NEUTROPHILS % (AUTO) 64.7 %; PLT - PLATELET COUNT 429 10^3/uL (130-450); RED BLOOD COUNT 4.18 10^6/uL (4.70-6.10); RED CELL DISTRIBUTION WIDTH 17.2 % (12.0-15.0); WHITE BLOOD COUNT 7.4 x10^3/uL (4.8-10.8)
[2023-06-18 17:07] LABS: ALBUMIN 4.2 g/dL (3.2-5.5); ALBUMIN/GLOBULIN RATIO 1.6 (1.0-2.2); BILIRUBIN,TOTAL 0.7 mg/dL (0.2-1.0); CALCIUM 10.6 mg/dL (8.5-10.3); CRP HIGH SENSITIVITY 0.87 mg/L; POTASSIUM 4.2 mmol/L (3.5-4.5); TOTAL PROTEIN 6.8 g/dL (6.4-8.9)
== END 2023-06-18 10:46 | disposition home or self-care (01) ==
LOC: LAB.S 10:45
PROVIDERS: ATTEND Internal Medicine Infectious Disease
DX: T84.51XA Infection and inflammatory reaction due to internal right hip prosthesis, initial encounter (principal)
CPT/HCPCS: 36415; 80053; 85025; 85651; 86141

== ENCOUNTER 2023-07-23 13:16 | Outpatient (CLI) | payer MEDICARE ==
[2023-07-23 20:09] LABS: INR 1.6 (0.8-1.2); PT - PROTHROMBIN TIME 17.1 secs (9.9-12.6)
== END 2023-07-23 13:17 | disposition home or self-care (01) ==
LOC: LAB.S 13:16
PROVIDERS: ATTEND Internal Medicine
DX: I48.0 Paroxysmal atrial fibrillation (principal)
CPT/HCPCS: 36415; 36416; 85610

== ENCOUNTER 2023-07-30 14:01 | Outpatient (CLI) | payer MEDICARE ==
[2023-07-30 19:45] LABS: BASOPHILS % (AUTO) 0.4 %; EOSINOPHILS # (AUTO) 0.1 10^3/uL (0.0-0.7); HCT - HEMATOCRIT 37.2 % (42.0-52.0); HGB - HEMOGLOBIN 11.3 g/dL (14.0-18.0); LYMPHOCYTES % (AUTO) 29.1 %; MEAN CORPUSCULAR HEMOGLOBIN 27.8 pg (27.0-31.0); MEAN CORPUSCULAR HGB CONC 30.4 g/dL (32.0-36.0); MEAN CORPUSCULAR VOLUME 91.4 fL (80.0-94.0); MEAN PLATELET VOLUME 9.8 fL (7.4-11.4); MONOCYTES # (AUTO) 0.6 10^3/uL (0.0-1.0); MONOCYTES % (AUTO) 9.1 %; NEUTROPHILS # (AUTO) 4.2 10^3/uL (1.5-6.6); NEUTROPHILS % (AUTO) 60.1 %; PLT - PLATELET COUNT 349 10^3/uL (130-450); RED BLOOD COUNT 4.07 10^6/uL (4.70-6.10); RED CELL DISTRIBUTION WIDTH 16.8 % (12.0-15.0)
[2023-07-30 20:01] LABS: ALBUMIN 4.1 g/dL (3.2-5.5); ALBUMIN/GLOBULIN RATIO 1.8 (1.0-2.2); BILIRUBIN,TOTAL 1.3 mg/dL (0.2-1.0); CALCIUM 10.4 mg/dL (8.5-10.3); CREATININE 0.9 mg/dL (0.6-1.3); CRP HIGH SENSITIVITY 0.62 mg/L; POTASSIUM 3.8 mmol/L (3.5-4.5); TOTAL PROTEIN 6.4 g/dL (6.4-8.9)
== END 2023-07-30 14:02 | disposition home or self-care (01) ==
LOC: LAB.S 14:01
PROVIDERS: ATTEND Internal Medicine Infectious Disease
DX: T84.51XA Infection and inflammatory reaction due to internal right hip prosthesis, initial encounter (principal)
CPT/HCPCS: 36415; 80053; 85025; 85651; 86141

== ENCOUNTER 2023-08-12 10:27 | Outpatient (CLI) | payer MEDICARE | END 2023-08-12 23:59 | disposition left against medical advice (07) | LOC: EMS 10:27 | DX: T23.252A Burn of second degree of left palm, initial encounter (principal); X15.0XXA Contact with hot stove (kitchen), initial encounter; Y92.000 Kitchen of unspecified non-institutional (private) residence as the place of occurrence of the external cause ==

== ENCOUNTER 2023-09-25 12:21 | Outpatient (CLI) | payer MEDICARE ==
[2023-09-25 14:22] LABS: BASOPHILS % (AUTO) 0.3 %; EOSINOPHILS # (AUTO) 0.1 10^3/uL (0.0-0.7); EOSINOPHILS % (AUTO) 1.2 %; HCT - HEMATOCRIT 36.7 % (42.0-52.0); HGB - HEMOGLOBIN 11.5 g/dL (14.0-18.0); LYMPHOCYTES # (AUTO) 1.5 10^3/uL (1.5-3.5); LYMPHOCYTES % (AUTO) 24.9 %; MEAN CORPUSCULAR HEMOGLOBIN 27.7 pg (27.0-31.0); MEAN CORPUSCULAR HGB CONC 31.3 g/dL (32.0-36.0); MEAN CORPUSCULAR VOLUME 88.4 fL (80.0-94.0); MEAN PLATELET VOLUME 9.9 fL (7.4-11.4); MONOCYTES # (AUTO) 0.6 10^3/uL (0.0-1.0); MONOCYTES % (AUTO) 9.6 %; NEUTROPHILS # (AUTO) 3.8 10^3/uL (1.5-6.6); NEUTROPHILS % (AUTO) 63.7 %; PLT - PLATELET COUNT 333 10^3/uL (130-450); RED BLOOD COUNT 4.15 10^6/uL (4.70-6.10); RED CELL DISTRIBUTION WIDTH 18.5 % (12.0-15.0)
[2023-09-25 15:17] LABS: ALBUMIN 4.1 g/dL (3.2-5.5); ALBUMIN/GLOBULIN RATIO 2.1 (1.0-2.2); BILIRUBIN,TOTAL 0.9 mg/dL (0.2-1.0); CALCIUM 10.1 mg/dL (8.5-10.3); CRP HIGH SENSITIVITY 0.69 mg/L; POTASSIUM 4.5 mmol/L (3.5-4.5); TOTAL PROTEIN 6.1 g/dL (6.4-8.9)
== END 2023-09-25 12:22 | disposition home or self-care (01) ==
LOC: LAB.S 12:21
PROVIDERS: ATTEND Internal Medicine Infectious Disease
DX: T84.51XA Infection and inflammatory reaction due to internal right hip prosthesis, initial encounter (principal)
CPT/HCPCS: 36415; 80053; 85025; 85651; 86141

== ENCOUNTER 2023-10-17 13:43 | Outpatient (CLI) | payer MEDICARE ==
[2023-10-17 20:02] LABS: BASOPHILS % (AUTO) 0.3 %; EOSINOPHILS # (AUTO) 0.1 10^3/uL (0.0-0.7); EOSINOPHILS % (AUTO) 1.3 %; HCT - HEMATOCRIT 37.7 % (42.0-52.0); HGB - HEMOGLOBIN 11.6 g/dL (14.0-18.0); LYMPHOCYTES # (AUTO) 1.7 10^3/uL (1.5-3.5); LYMPHOCYTES % (AUTO) 27.6 %; MEAN CORPUSCULAR HEMOGLOBIN 27.6 pg (27.0-31.0); MEAN CORPUSCULAR HGB CONC 30.8 g/dL (32.0-36.0); MEAN CORPUSCULAR VOLUME 89.8 fL (80.0-94.0); MEAN PLATELET VOLUME 9.8 fL (7.4-11.4); MONOCYTES # (AUTO) 0.6 10^3/uL (0.0-1.0); MONOCYTES % (AUTO) 9.3 %; NEUTROPHILS # (AUTO) 3.8 10^3/uL (1.5-6.6); NEUTROPHILS % (AUTO) 61.2 %; PLT - PLATELET COUNT 327 10^3/uL (130-450); WHITE BLOOD COUNT 6.3 x10^3/uL (4.8-10.8)
[2023-10-17 20:20] LABS: ALBUMIN 4.2 g/dL (3.2-5.5); CREATININE 0.9 mg/dL (0.6-1.3); CRP HIGH SENSITIVITY 0.42 mg/L; POTASSIUM 4.1 mmol/L (3.5-4.5); TOTAL PROTEIN 6.3 g/dL (6.4-8.9)
== END 2023-10-17 13:44 | disposition home or self-care (01) ==
LOC: LAB.S 13:43
PROVIDERS: ATTEND Internal Medicine Infectious Disease
DX: T84.51XA Infection and inflammatory reaction due to internal right hip prosthesis, initial encounter (principal)
CPT/HCPCS: 36415; 80053; 85025; 85651; 86141

== ENCOUNTER 2023-12-03 08:04 | Outpatient (CLI) | payer MEDICARE ==
[2023-12-03 15:07] LABS: BASOPHILS % (AUTO) 0.4 %; EOSINOPHILS # (AUTO) 0.1 10^3/uL (0.0-0.7); EOSINOPHILS % (AUTO) 1.5 %; HCT - HEMATOCRIT 38.7 % (42.0-52.0); HGB - HEMOGLOBIN 12.2 g/dL (14.0-18.0); LYMPHOCYTES # (AUTO) 1.5 10^3/uL (1.5-3.5); LYMPHOCYTES % (AUTO) 27.2 %; MEAN CORPUSCULAR HEMOGLOBIN 29.4 pg (27.0-31.0); MEAN CORPUSCULAR HGB CONC 31.5 g/dL (32.0-36.0); MEAN CORPUSCULAR VOLUME 93.3 fL (80.0-94.0); MEAN PLATELET VOLUME 9.6 fL (7.4-11.4); MONOCYTES # (AUTO) 0.5 10^3/uL (0.0-1.0); MONOCYTES % (AUTO) 9.7 %; NEUTROPHILS # (AUTO) 3.3 10^3/uL (1.5-6.6); PLT - PLATELET COUNT 395 10^3/uL (130-450); RED BLOOD COUNT 4.15 10^6/uL (4.70-6.10); RED CELL DISTRIBUTION WIDTH 18.8 % (12.0-15.0); WHITE BLOOD COUNT 5.4 x10^3/uL (4.8-10.8)
[2023-12-03 15:44] LABS: ALBUMIN 4.2 g/dL (3.2-5.5); ALBUMIN/GLOBULIN RATIO 1.8 (1.0-2.2); BILIRUBIN,TOTAL 0.7 mg/dL (0.2-1.0); CALCIUM 10.1 mg/dL (8.5-10.3); CREATININE 1.2 mg/dL (0.6-1.3); CRP HIGH SENSITIVITY 0.36 mg/L; POTASSIUM 4.8 mmol/L (3.5-4.5); TOTAL PROTEIN 6.5 g/dL (6.4-8.9)
== END 2023-12-03 08:05 | disposition home or self-care (01) ==
LOC: LAB.S 08:04
PROVIDERS: ATTEND Internal Medicine Infectious Disease
DX: T84.51XA Infection and inflammatory reaction due to internal right hip prosthesis, initial encounter (principal)
CPT/HCPCS: 36415; 80053; 85025; 85651; 86141

== ENCOUNTER 2023-12-11 17:26 | Outpatient (CLI) | payer MEDICARE | END 2023-12-11 17:27 | disposition critical access hospital (66) | LOC: EMS 17:26 | DX: R12 Heartburn (principal); R07.9 Chest pain, unspecified; I10 Essential (primary) hypertension; I48.91 Unspecified atrial fibrillation | CPT/HCPCS: A0425; A0429 ==

== ENCOUNTER 2023-12-11 18:04 | Emergency (ER) | payer MEDICARE ==
--- NOTE | 2023-12-11 18:17 | ED Physician Documentation ---
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 Starting yesterday he developed pretty severe headache associated with feeling off balance and terrible substernal heartburn. He denies fevers, chills, body aches. No history of coronary disease. Came in BLS. PD PAST MEDICAL HISTORY - Past Medical History Cardiovascular: Deep vein thrombosis, Pulmonary embolism, Atrial fibrillation Respiratory: None Neuro: None Endocrine/Autoimmune: Type 2 diabetes GI: GERD, Ulcers, Hiatal hernia : None Psych: None Musculoskeletal: Gout - Past Surgical History Past Surgical History: Yes General: Hiatal hernia repair Ortho: Knee replacement, Arthroscopic surgery, Other Derm: Other - Present Medications Home Medications: Ambulatory Orders Medication Instructions Recorded Confirmed Cholecalciferol (Vitamin D3) 400 unit PO DAILY 08/26/13 12/06/16 [Vitamin D3] Cyanocobalamin/Folic Acid [Vitamin 1 tab PO DAILY 08/26/13 12/06/16 C93-[id number] Acid Tablet] Gabapentin [Neurontin] 300 mg PO BID 08/26/13 12/06/16 Acetaminophen [Tylenol] 650 mg PO Q4HR PRN #0 tablet 01/25/16 12/06/16 Atorvastatin [Lipitor] 40 mg PO QPM tablet 01/25/16 12/06/16 Metoprolol Tartrate [Lopressor] 12.5 mg PO BID #60 tablet 01/25/16 12/06/16 Warfarin [Coumadin] 7.5 mg PO QPM tablet 01/25/16 12/06/16 metFORMIN [Glucophage] 500 mg PO BIDWM 12/06/16 12/06/16 raNITIdine [Zantac] 150 mg PO DAILY 12/06/16 12/06/16 Oxycodone HCl/Acetaminophen 1 each PO Q4H PRN #10 tablet 07/31/22 [Percocet 10-325 mg Tablet] - Allergies Allergies/Adverse Reactions: Allergies Allergy/AdvReac Type Severity Reaction Status Date / Time adhesive tape Allergy Unknown Verified 12/11/23 18:23 iodine Allergy Unknown Verified 12/11/23 18:23 neosporin ointment AdvReac Intermediate Rash Uncoded 12/11/23 18:23 - Social History Does the pt smoke?: No Smoking Status: Former smoker Does the pt drink ETOH?: Yes Does the pt have substance abuse?: No - Immunizations Immunizations are current?: Yes - POLST Patient has POLST: No PD ED PE NORMAL - Vitals Vital signs reviewed: Yes - General General: Alert and oriented X 3, No acute distress - HEENT HEENT: PERRL, EOMI - Neck Neck: Supple, no meningeal sign, No bony TTP - Cardiac Cardiac: No murmur, Other (Irregularly irregular) - Respiratory Respiratory: No respiratory distress, Clear bilaterally - Abdomen Abdomen: Normal bowel sounds, Soft, Non tender - Back Back: No CVA TTP, No spinal TTP - Derm Derm: Normal color, Warm and dry - Extremities Extremities: No edema, No calf tenderness / cord - Neuro Neuro: Alert and oriented X 3, 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 Relevant findings are: Rate: Rate (enter#) (48) Rhythm: Atrial fibrillation [place]: LAD QRS: Normal Ischemia: Normal ST segments - Labs Labs: Laboratory Tests 12/11/23 12/11/23 12/11/23 18:24 18:24 20:29 WBC 6.0 RBC 4.05 L Hgb 12.0 L Hct 38.0 L MCV 93.8 MCH 29.6 MCHC 31.6 L RDW 18.5 H Plt Count 367 MPV 9.3 Neut # (Auto) 3.8 Lymph # (Auto) 1.5 [place] # (Auto) 0.5 Eos # (Auto) 0.1 Baso # (Auto) 0.0 Absolute Nucleated RBC 0.00 Nucleated RBC % 0.0 Sodium 137 Potassium 4.6 H Chloride 105 Carbon Dioxide 26 Anion Gap 6.0 BUN 25 H Creatinine 1.2 Estimated GFR (MDRD) 58 L Glucose 122 H Calcium 9.9 Total Bilirubin 0.6 AST 19 ALT 16 Alkaline Phosphatase 41 L Troponin I High Sens 21.2 H* 24.1 H* Total Protein 6.8 Albumin 4.5 Globulin 2.3 Albumin/Globulin Ratio 2.0 PD Medical Decision Making - ED course ED course: 83-year-old gentleman with A-fib and a chronic prophylaxis for a hip prosthetic infection presents with nonspecific symptoms of headache, chest pain, and just does not feel well. EKG was without ischemia. Differential diagnosis would include cranial hemorrhage, tumor, stroke although he has no findings on stroke exam, [place]. CBC showing mild anemia, CMP unremarkable. Troponin and CT of the head pending at shift change with care to Dr. Dolan to follow-up. Departure - Departure Disposition: Home, Self Care Clinical Impression: Chest pain Qualifiers: Chest pain type: unspecified Qualified Code(s): R07.9 - Chest pain, unspecified Headache Qualifiers: Headache type: unspecified Headache chronicity pattern: acute headache Intractability: not intractable Qualified Code(s): R51.9 - Headache, unspecified Instructions: ED Chest Pain Atypical Unkn Cause, ED Cephalgia Unspecified Comments: There were no concerning nor diagnostic findings on tonight's tests. The cause of your symptoms is not apparent at this time. 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 Forms: PCP List Discharge Date/Time: 12/11/23 21:56
[2023-12-11 18:30] LABS: BASOPHILS % (AUTO) 0.5 %; EOSINOPHILS # (AUTO) 0.1 10^3/uL (0.0-0.7); EOSINOPHILS % (AUTO) 1.3 %; LYMPHOCYTES # (AUTO) 1.5 10^3/uL (1.5-3.5); LYMPHOCYTES % (AUTO) 24.6 %; MEAN CORPUSCULAR HEMOGLOBIN 29.6 pg (27.0-31.0); MEAN CORPUSCULAR HGB CONC 31.6 g/dL (32.0-36.0); MEAN CORPUSCULAR VOLUME 93.8 fL (80.0-94.0); MEAN PLATELET VOLUME 9.3 fL (7.4-11.4); MONOCYTES # (AUTO) 0.5 10^3/uL (0.0-1.0); NEUTROPHILS # (AUTO) 3.8 10^3/uL (1.5-6.6); NEUTROPHILS % (AUTO) 64.3 %; PLT - PLATELET COUNT 367 10^3/uL (130-450); RED BLOOD COUNT 4.05 10^6/uL (4.70-6.10); RED CELL DISTRIBUTION WIDTH 18.5 % (12.0-15.0)
[2023-12-11 18:31] VITALS: O2SAT 97
[2023-12-11] MEDS: ACETAMINOPHEN 500 MG TABLET PO STA (18:41)
[2023-12-11 18:48] LABS: ALBUMIN 4.5 g/dL (3.2-5.5); BILIRUBIN,TOTAL 0.6 mg/dL (0.2-1.0); CALCIUM 9.9 mg/dL (8.5-10.3); CREATININE 1.2 mg/dL (0.6-1.3); POTASSIUM 4.6 mmol/L (3.5-4.5); TOTAL PROTEIN 6.8 g/dL (6.4-8.9)
[2023-12-11 18:55] LABS: TROPONIN I HIGH SENSITIVITY 21.2 ng/L (2.3-19.7)
[2023-12-11] MEDS: MAG HYDROX/AL HYDROX/SIMETH 30 ML UDC PO STA (19:14)
--- NOTE | 2023-12-11 19:23 | CT Report ---
PROCEDURE: Head WO INDICATIONS: headache TECHNIQUE: Noncontrast 4.5 mm thick angled axial sections acquired from the foramen magnum to the vertex. For r adiation dose reduction, the following was used: automated exposure control, adjustment of mA and/or kV according to patient size. COMPARISON: CT head 11/24/2022 FINDINGS: Image quality: Excellent. The ventricular system and cortical sulci demonstrate atrophy, consistent for patient's stated age. There are areas of hypodensity in the periventricular and subcortical white matter. There is no acut e intra or extra-axial fluid collection. No acute hemorrhage, mass lesion or midline shift. Brainst em is unremarkable. Globes are symmetrical. Sinuses are aerated. Osseous structures are intact. IMPRESSION: 1. No acute intracranial process. 2. Moderate atrophy and chronic microvascular ischemic changes. Reviewed by: Delaney Pichardo MD on 12/11/2023 7:21 PM PDT Approved by: Delaney Pichardo MD on 12/11/2023 7:21 PM PDT Station ID: [id number]
--- NOTE | 2023-12-11 21:23 | ED Physician Documentation ---
ED Addendum - Addendum Addendum: 12/12/23 03:43 I received signout/turnover of care on this patient from Dr. Pantoja; please see his note for complete H&P. At the time of turnover of care, CT head is pending and a second/repeat hs-cTn is ordered (2-hour repeat from initial hs-cTn). No acute intracranial process on CT head. Initial troponin is 21.2, 2-hour repeat is 24.1, representing an insignificant delta. I discussed these results with the patient. Etiology of symptoms is not apparent at this time. Return precautions are reviewed. Advised to contact his primary care provider to arrange for the next available appointment for follow- up/reevaluation.
[2023-12-11 22:02] VITALS: BP 133/78
== END 2023-12-11 21:56 | disposition home or self-care (01) ==
LOC: EDUNIT# → ED 18:04
DX: R51.9 Headache, unspecified (principal); I48.21 Permanent atrial fibrillation; R07.9 Chest pain, unspecified; E11.9 Type 2 diabetes mellitus without complications; Z79.01 Long term (current) use of anticoagulants; Z79.84 Long term (current) use of oral hypoglycemic drugs
CPT/HCPCS: 36415; 70450; 80053; 84484; 85025; 93005; 99284; A9270

== ENCOUNTER 2023-12-26 12:03 | Outpatient (CLI) | payer MEDICARE ==
[2023-12-26 12:13] LABS: BASOPHILS % (AUTO) 0.5 %; EOSINOPHILS # (AUTO) 0.1 10^3/uL (0.0-0.7); HCT - HEMATOCRIT 39.9 % (42.0-52.0); HGB - HEMOGLOBIN 12.6 g/dL (14.0-18.0); MEAN CORPUSCULAR HEMOGLOBIN 29.8 pg (27.0-31.0); MEAN CORPUSCULAR HGB CONC 31.6 g/dL (32.0-36.0); MEAN CORPUSCULAR VOLUME 94.3 fL (80.0-94.0); MEAN PLATELET VOLUME 8.9 fL (7.4-11.4); MONOCYTES # (AUTO) 0.7 10^3/uL (0.0-1.0); MONOCYTES % (AUTO) 8.7 %; NEUTROPHILS # (AUTO) 4.9 10^3/uL (1.5-6.6); NEUTROPHILS % (AUTO) 63.3 %; PLT - PLATELET COUNT 397 10^3/uL (130-450); RED BLOOD COUNT 4.23 10^6/uL (4.70-6.10); RED CELL DISTRIBUTION WIDTH 18.6 % (12.0-15.0); WHITE BLOOD COUNT 7.8 x10^3/uL (4.8-10.8)
[2023-12-26 12:29] LABS: ALBUMIN 4.3 g/dL (3.2-5.5); ALBUMIN/GLOBULIN RATIO 1.9 (1.0-2.2); BILIRUBIN,TOTAL 0.8 mg/dL (0.2-1.0); CALCIUM 10.2 mg/dL (8.5-10.3); CREATININE 1.3 mg/dL (0.6-1.3); CRP HIGH SENSITIVITY 0.71 mg/L; POTASSIUM 4.9 mmol/L (3.5-4.5); TOTAL PROTEIN 6.6 g/dL (6.4-8.9)
== END 2023-12-26 12:04 | disposition home or self-care (01) ==
LOC: LAB 12:03
PROVIDERS: ATTEND Internal Medicine Infectious Disease
DX: T84.51XA Infection and inflammatory reaction due to internal right hip prosthesis, initial encounter (principal)
CPT/HCPCS: 36415; 80053; 85025; 85651; 86141

== ENCOUNTER 2024-01-08 13:52 | Outpatient (CLI) | payer MEDICARE ==
[2024-01-08 14:10] LABS: BASOPHILS % (AUTO) 0.5 %; EOSINOPHILS # (AUTO) 0.1 10^3/uL (0.0-0.7); EOSINOPHILS % (AUTO) 1.9 %; HCT - HEMATOCRIT 40.2 % (42.0-52.0); HGB - HEMOGLOBIN 12.7 g/dL (14.0-18.0); LYMPHOCYTES # (AUTO) 1.9 10^3/uL (1.5-3.5); LYMPHOCYTES % (AUTO) 32.4 %; MEAN CORPUSCULAR HEMOGLOBIN 30.5 pg (27.0-31.0); MEAN CORPUSCULAR HGB CONC 31.6 g/dL (32.0-36.0); MEAN CORPUSCULAR VOLUME 96.4 fL (80.0-94.0); MEAN PLATELET VOLUME 9.3 fL (7.4-11.4); MONOCYTES # (AUTO) 0.5 10^3/uL (0.0-1.0); MONOCYTES % (AUTO) 8.5 %; NEUTROPHILS # (AUTO) 3.3 10^3/uL (1.5-6.6); NEUTROPHILS % (AUTO) 56.4 %; PLT - PLATELET COUNT 357 10^3/uL (130-450); RED BLOOD COUNT 4.17 10^6/uL (4.70-6.10); RED CELL DISTRIBUTION WIDTH 17.5 % (12.0-15.0); WHITE BLOOD COUNT 5.9 x10^3/uL (4.8-10.8)
[2024-01-08 14:20] LABS: ALBUMIN 4.5 g/dL (3.2-5.5); ALBUMIN/GLOBULIN RATIO 2.1 (1.0-2.2); BILIRUBIN,TOTAL 0.7 mg/dL (0.2-1.0); CALCIUM 10.2 mg/dL (8.5-10.3); CREATININE 1.4 mg/dL (0.6-1.3); CRP HIGH SENSITIVITY 0.87 mg/L; POTASSIUM 5.1 mmol/L (3.5-4.5); TOTAL PROTEIN 6.6 g/dL (6.4-8.9)
== END 2024-01-08 13:53 | disposition home or self-care (01) ==
LOC: LAB 13:52
PROVIDERS: ATTEND Internal Medicine Infectious Disease
DX: T84.51XA Infection and inflammatory reaction due to internal right hip prosthesis, initial encounter (principal)
CPT/HCPCS: 36415; 80053; 85025; 85651; 86141